=== PATIENT | male | born 1955 | race Caucasian/White ===

== ENCOUNTER 2024-03-21 12:30 | Inpatient (IN) | payer MEDICARE, SELFPAY ==
[2024-03-21] VITALS (14 sets, daily range): BP systolic 131–188; BP diastolic 58–129; PULSE 93–124; RESP 18–25; TEMP 36.7–37.2; O2SAT 92–97; BMI 44.8
--- NOTE | 2024-03-21 12:54 | CT_ITS ---
STUDY: CT CERVICAL SPINE WITHOUT CONTRAST REASON FOR EXAM: Male, 68 years old. ams RADIATION DOSAGE (If Supplied By Facility): CTDIvol = ( 29.94 ) mGy, DLP = ( 727.35 ) mGycm TECHNIQUE: High resolution transaxial imaging was performed without contrast material. Sagittal and coronal images were reconstructed. Individualized dose optimization techniques were used for this CT. COMPARISON: None FINDINGS: Normal craniovertebral junction. There are degenerative changes of the anterior atlantoaxial articulation. Normal odontoid process. Normal cervical lordosis. Multilevel spondylosis. C2-3: Normal endplates. Normal disc height and morphology. Normal central canal and intervertebral neuroforamina. C3-4: Moderate degree of this space narrowing. Uncovertebral arthrosis. Mild right neural foraminal stenosis. C4-5: Mild degree of disc space narrowing. No significant stenosis is seen. C5-6: Moderate degree of disc space narrowing and spondylolisthesis. Uncovertebral arthrosis. Moderate degree of bilateral neural foraminal stenosis. C6-7: Mild degree of disc space narrowing. No significant stenosis seen. C7-T1: Normal endplates. Normal disc height and morphology. Normal central canal and intervertebral neuroforamina. Normal visualized soft tissue structures. CT/Spine Cervical without Contras IMPRESSION: Multilevel degenerative changes, as described above. Electronically Signed: Isrrael Garcia MD at 13:45 EDT ,
--- NOTE | 2024-03-21 12:54 | CT_ITS ---
STUDY: CT BRAIN WITHOUT CONTRAST REASON FOR EXAM: Male, 68 years old. Altered mental status. RADIATION DOSAGE (If Supplied By Facility): CTDIvol = ( 44.99 ) mGy, DLP = ( 779.24 ) mGycm TECHNIQUE: Transaxial CT imaging of the brain was performed without administration of intravenous contrast material. Individualized dose optimization techniques were used for this CT. COMPARISON: No relevant priors. FINDINGS: Normal soft tissue structures. Normal calvarium. There is mild cerebral atrophy with widening of the extra-axial spaces and ventricular dilatation. There are areas of decreased attenuation within the white matter tracts of the supratentorial brain, consistent with microvascular disease changes. Normal basal ganglia and thalami. Normal brainstem. Normal cerebellum. There is no intracranial hemorrhage. There are no findings of an acute ischemic infarction. Atherosclerotic calcification of the cavernous portions of the internal carotid arteries bilaterally. Normal visualized paranasal sinuses. CT/Brain/Head without Contrast IMPRESSION: Chronic involutional changes of the brain. Electronically Signed: Isrrael Garcia MD at 13:39 EDT ,
--- NOTE | 2024-03-21 13:02 | EX.ED.DYSGE1 ---
HPI History of Present Illness Chief Complaint: Alt LOC Narrative Narrative: 68-year-old male arriving by EMS. Apparently he has not been himself. He is not talking to me but he will wake up and tell me to shut up. He did ask me what are you doing here. He will not answer any questions otherwise. He was found in his own feces and urine. Nobody is aware who called EMS. Patient reportedly has a girlfriend but she is not with him. PFSH PFSH Home Medications hydrocodone-acetaminophen 5-325mg 5mg-325mg 1 - 2 tab PO Q4H PRN PRN Pain ##20 06/23/14 [Rx Last Taken Unknown] prednisone 20 mg tablet 40 mg (2 x 20 mg) PO DAILY ##14 06/23/14 [Rx Last Taken Unknown] colchicine 0.6 mg capsule 0.6 mg PO X1 ##10 07/04/14 [Rx Last Taken Unknown] hydrocodone-acetaminophen 5-325mg 5mg-325mg 1 - 2 tab PO Q4H PRN PRN Pain ##20 07/04/14 [Rx Last Taken Unknown] indomethacin 25 mg capsule 25 mg PO TIDCM ##15 07/04/14 [Rx Last Taken Unknown] Allergy/AdvReac Type Severity Reaction Status Date / Time No Known Allergies Allergy Verified 03/21/24 12:32 Social History Smoking Status: Current some day smoker tobacco type: cigarettes ROS ROS ED Review of Systems ROS Unobtainable: due to mental condition and due to mental status EXAM Physical Exam Const Vital Signs: 03/21/24 12:31 03/21/24 13:42 03/21/24 13:30 Temperature 98.9 F Temperature Source Temporal Pulse Rate 113 H 124 H Respiratory Rate 20 H 21 H Blood Pressure 155/121 H 188/110 H Blood Pressure Mean 132 136 Pulse Ox 95 95 95 Oxygen Delivery Method Room Air Room Air 03/21/24 14:00 03/21/24 15:00 03/21/24 16:00 Temperature Temperature Source Pulse Rate 117 H 112 H 115 H Respiratory Rate 24 H 22 H 24 H Blood Pressure 187/124 H 169/129 H Blood Pressure Mean 145 142 Pulse Ox 95 95 92 Oxygen Delivery Method Room Air Room Air Room Air Positive obese and unkempt General Appearance ED: unkempt Nutritional Appearance: obese HEENT Reports TM's clear and dry mucous membranes Negative for trauma Tympanic Membrane ED: Yes TM's clear Mouth ED: Yes dry mucous membranes Mouth: dry mucous membranes Eyes PERRL and EOMs intact bilaterally Chest Wall inspection of chest normal and palpation of chest normal Resp normal respiratory effort and clear to auscultation bilaterally Auscultation: Negative for rales or rhonchi Cardio regular rate and regular rhythm GI normal to inspection, nondistended, normoactive bowel sounds Extremity normal to inspection General Extremety ED: Negative for edema General Extremity: Negative for edema Neuro CN's II-XII intact bilaterally Sensorium / Orientation: alert and orientation impaired Psych Appearance: unkempt Attitude: agitated Skin no rashes or lesions noted and no wounds MDM MDM MDM Narrative Medical decision making narrative: After initial evaluation the patient being agitated and started trying to hit the nurses and staff. I do believe he needs a workup so we will give him Leatha to calm down. He may need restraints. Differential includes intracranial hemorrhage, C-spine fracture, hyperammonemia, UTI, pneumonia, hyperglycemia, hypoglycemia, dehydration, anemia, electrolyte abnormalities, rhabdomyolysis, ACS, pneumonia UTI. CBC was obtained to assess white blood cell count, hemoglobin, platelets. CBC was obtained to assess white blood cell count, hemoglobin, platelets. BMP to assess renal function, electrolytes, glucose. CPK to assess for rhabdomyolysis. Liver enzymes to assess for transaminitis. High-sensitivity troponin and EKG to assess for ischemia/dysrhythmia. Urinalysis to assess for UTI. EtOH to assess for alcohol use drug abuse screen and assess for drug use. Acetone level to assess for DKA. Patient did go with Geodon did not have to be restrained. CBC showed 12.0 white count. Hemoglobin stable 13.4. Platelets are normal at 264. PT/INR normal. Creatinine 1.84 and there is no comparison labs that I can find. Glucose is 603 without anion gap. Serum acetone negative. Electrolytes essentially unremarkable. Ammonia level 24. EtOH negative, drug screen negative, urinalysis negative for infection CPK was within normal limits. High-sensitivity troponin was 29. Chest x-ray my interpretation showed no acute process. CT brain and cervical spine were negative for acute findings. I did speak with his sister who stated she had not spoken to him in months but did state there was somebody that sleeps on his couch and is a female named Kamryn that she believes. She was unable to provide me with any baseline mentation. She was going to try to get a hold of Kamryn but I have not heard back from her. Patient was given IV fluids and 20 units of insulin. Discussed with the hospitalist for admission. Impression: 1. delirium 2. Hyperglycemia 3. Renal failure Lab Data Labs: Laboratory Results - last 24 hr 03/21/24 03/21/24 12:36 13:20 WBC 12.0 H RBC 5.95 Hgb 15.4 Hct 47.2 MCV 79.3 L MCH 25.9 L MCHC 32.6 RDW Std Deviation 40.6 RDW Coeff of Crescencio 14.4 Plt Count 264 MPV 9.3 Immature Gran % (Auto) 1.000 H Neut % (Auto) 76.6 H Lymph % (Auto) 15.4 L [place] % (Auto) 6.3 Eos % (Auto) 0.2 Baso % (Auto) 0.5 Absolute Neuts (auto) 9.2 H Absolute Lymphs (auto) 1.86 Nucleated RBC % 0 PT 13.9 INR 1.1 APTT 25.1 Sodium 133 L Potassium 4.3 Chloride 102 Carbon Dioxide 22.0 Anion Gap 9 BUN 35 H Creatinine 1.84 H Estim Creat Clear Calc 48.30 Est GFR (MDRD) Af Amer 47 L Est GFR (MDRD) Non-Af 39 L BUN/Creatinine Ratio 19.0 Glucose 603 H* Calcium 9.4 Ammonia 24.0 Total Creatine Kinase 123 Troponin I High Sens 29 Urine Color Yellow Urine Clarity Clear Urine pH 6.0 Ur Specific [place] 1.010 Urine Protein 30 H Urine Glucose (UA) 1000 H Urine Ketones 5 H Urine Occult Blood 50 H Urine Nitrite Negative Urine Bilirubin Negative Urine Urobilinogen Normal Ur Leukocyte Esterase Negative Urine RBC 0-5 SEEN Urine WBC 0 SEEN Ur Squamous Epith Cells 0 SEEN Urine Bacteria 0 SEEN Urine Mucus 0 SEEN Urine Opiates Screen NEGATIVE Urine Methadone Screen NEGATIVE Ur Barbiturates Screen NEGATIVE Ur Phencyclidine Scrn NEGATIVE Ur Amphetamines Screen NEGATIVE MDMA (Ecstasy) Screen NEGATIVE U Benzodiazepines Scrn NEGATIVE Urine Cocaine Screen NEGATIVE U Cannabinoids Screen NEGATIVE Ur Drug Screen Comment Ethyl Alcohol < 3.0 Acetone Level NEGATIVE Radiography Diagnostic Testing: Clinical Impression(s) from Imaging Studies Brain CT 03/21/24 12:54 IMPRESSION: Chronic involutional changes of the brain. Electronically Signed: Isrrael Garcia MD at 13:39 EDT , Cervical Spine CT 03/21/24 12:54 IMPRESSION: Multilevel degenerative changes, as described above. Electronically Signed: Isrrael Garcia MD at 13:45 EDT , Chest X-Ray 03/21/24 14:45 IMPRESSION: Moderate cardiomegaly. Electronically Signed: Isrrael Garcia MD at 15:11 EDT , Discharge Plan Triage Chief Complaint: Alt LOC ED Provider: Ho Gutierrez Dx/Rx/DC Orders Prescriptions: No Action hydrocodone-acetaminophen 1 TABLET tablet 1 - 2 tab PO Q4H PRN PRN (Reason: Pain) Qty: 20 0RF prednisone 20 MG tablet 40 mg PO DAILY Qty: 14 0RF Rx Instructions: 1po bid for 7 days hydrocodone-acetaminophen 1 TABLET tablet 1 - 2 tab PO Q4H PRN PRN (Reason: Pain) Qty: 20 0RF colchicine 0.6 MG tablet 0.6 mg PO X1 Qty: 10 0RF indomethacin 25 MG capsule 25 mg PO TIDCM Qty: 15 0RF Primary Care Provider: Care Physician,No Primary Referrals: Care Physician,No Primary [Primary Care Provider] -
[2024-03-21 13:06] LABS: Absolute Lymphocyte Count 1.86 X10^3/uL (0.83-4.51); Absolute Neutrophil Count 9.2 X10^3/uL (2.0-7.7); Basophil# 0.06 X10^3/uL; Basophil% 0.5 % (0-1); Eosinophil# 0.02 X10^3/uL; Eosinophils% 0.2 % (0-5); Hematocrit 47.2 % (40-54); Hemoglobin 15.4 g/dL (13.0-16.5); Lymphocyte # 1.86 X10^3/ul (0.83-4.51); Lymphocyte % 15.4 % (19-41); Mean Corp Hgb Conc 32.6 g/dL (32-36); Mean Corpuscular Hgb 25.9 pg (27.0-32.0); Mean Corpuscular Volume 79.3 fL (80-94); Mean Platelet Vol. 9.3 fl (6.2-12.0); Monocyte# 0.76 X10^3/uL; Monocyte% 6.3 % (0-10); NRBC Flagged by Analyzer 0 % (0-5); Neutrophil # 9.22 X10^3/uL (2.7-7.7); Neutrophil % 76.6 % (47-70); Platelet Count 264 K/mm3 (150-450); RBC Distribution Width CV 14.4 % (11.6-14.6); RBC Distribution Width SD 40.6 fl (35.1-43.9); Red Blood Count 5.95 M/mm3 (4.6-6.2)
[2024-03-21 13:16] LABS: International Normalized Ratio 1.1; Prothrombin Time (Protime)PT. 13.9 SECONDS (11.7-14.9)
[2024-03-21 13:17] LABS: Partial Thromboplast Time 25.1 Seconds (24.1-36.2)
[2024-03-21] MEDS: Ziprasidone IM 20 MG/ML VIAL IM (13:19)
[2024-03-21 13:37] LABS: Anion Gap 9 (5-15); BUN 35 mg/dL (7-18); Calcium,Total 9.4 mg/dL (8.5-10.1); Chloride 102 mmol/L (98-107); Creatinine, Serum 1.84 mg/dL (0.70-1.30); EST Glomerular Filtration Rate 39 mL/min (>60); Est Glom Filt Rate - Afr Amer 47 mL/min (>60); Glucose 603 mg/dL (74-106); Potassium 4.3 mmol/L (3.5-5.1); Sodium Level 133 mmol/L (136-145); Troponin-I HS 29 pg/mL (3.0-78.0)
[2024-03-21 14:10] LABS: CPK Total, Creatine Kinase 123 U/L (39-308)
[2024-03-21 14:11] LABS: Alcohol, Blood (Medical)-Serum < 3.0 mg/dL
[2024-03-21 14:40] LABS: Amphetamine Urine VISTA NEGATIVE (<1000 ng/mL); Barbiturate Urine VISTA NEGATIVE (< 200 ng/mL); Benzodiazepine Urine VISTA NEGATIVE (< 200 ng/mL); Cocaine Urine VISTA NEGATIVE (< 300 ng/mL); Ecstacy Urine VISTA NEGATIVE (< 500 ng/mL); Methadone Urine VISTA NEGATIVE (< 300 ng/mL); PCP Urine VISTA NEGATIVE (< 25 ng/mL); THC Urine VISTA NEGATIVE (< 50 ng/mL); Vista UDS pH Range 5
--- NOTE | 2024-03-21 14:45 | RAD_ITS ---
STUDY: X-RAY CHEST REASON FOR EXAM: Male, 68 years old. Weakness TECHNIQUE: Single AP portable view of the chest. COMPARISON: None. FINDINGS: EKG electrodes are seen. The lungs are clear and expanded. There is no demonstrated pleural abnormality. There is moderate cardiac enlargement. Normal mediastinum and yael. Normal visualized pulmonary arteries. There is atherosclerotic tortuosity of the aortic arch and descending thoracic aorta. Normal visualized thoracic spine. Normal visualized ribs, clavicles, and shoulders. There is no demonstrated abnormality of the visualized soft tissue structures of the upper abdomen. RAD/Chest 1 View (Portable) IMPRESSION: Moderate cardiomegaly. Electronically Signed: Isrrael Garcia MD at 15:11 EDT ,
[2024-03-21 14:48] LABS: Bacteria 0 SEEN /hpf (None Seen); Mucous, Urine 0 SEEN /hpf (<or=2+); Squamous Epithelial Cells - UA 0 SEEN /hpf (0-5); White Blood Cells 0 SEEN /hpf (0-5)
[2024-03-21 14:52] LABS: Color, Urine Yellow (Yellow); Glucose, Dipstick 1000 mg/dl (Normal); Ketone-Dipstick 5 mg/dl (Negative); Leukocyte Esterase-Dipstick Negative /ul (Negative); Nitrite-Dipstick Negative (Negative); Occult Blood-Urine 50 /ul (Negative); Protein-Dipstick 30 mg/dl (Negative); Urine Bilirubin Dipstick Negative (Negative); Urine Clarity Clear (Clear); Urine Urobilinogen Normal (Normal)
[2024-03-21 14:59] LABS: Red Blood Cells-Urine 0-5 SEEN /hpf (0-5)
--- NOTE | 2024-03-21 16:04 | HP.PCM_ITS ---
HPI - General General Date of Admission: 03/21/24 Date of Service: 03/21/24 Chief Complaint: Altered mental status HPI Narrative JAHAIRA MAHMOOD, is a 68 M with no known past medical history was admitted to the ED on 03/16/2024 for altered mental status. Patient had apparently not been himself and could not give much of a history. He was found in his own feces and urine. EMS was called but it is not clear exactly who called the EMS. EMS b rought him to the hospital he could not give much of a history. Unable to do review of systems as patient is confused and had received Geodon in the ED on account of physical aggression and combativeness. Vitals at time of review a blood pressure of 169/129, pulse rate of 112 range. Rate of 22. Oxygen saturation was 95% on room air. CBC showed WBC of 12, hemoglobin of 15.4 and platelets of 264. INR was 1.1. Chemistry shows sodium of 133 with creatinine of 1.84, with no baseline creatinine in the EMR. Blood glucose was 603 and ammonia level was 24. Bicarb was 22 and anion gap is 9. To sultana CPK was 123 and initial troponin was 29. Urinalysis showed glucose of 5000 with protein of 30 as well as ketones of 5. There is no evidence of urine leukocyte esterase or urine WBC or urine bacteria. Urine tox was negative and serum acetone level was also negative. CT of the brain showed chronic involutional changes and CT of the cervical spine showed multilevel degenerative changes as above. Chest x-ray showed no acute cardiopulmonary process and showed moderate cardiomegaly. He has been admitted to be managed for acute encephalopathy in the setting of elevated blood sugar likely due to undiagnosed diabetes mellitus. [facility] Home Medications hydrocodone-acetaminophen 5-325mg 5mg-325mg 1 - 2 tab PO Q4H PRN PRN Pain ##20 06/23/14 [Rx Last Taken Unknown] prednisone 20 mg tablet 40 mg (2 x 20 mg) PO DAILY ##14 06/23/14 [Rx Last Taken Unknown] colchicine 0.6 mg capsule 0.6 mg PO X1 ##10 07/04/14 [Rx Last Taken Unknown] hydrocodone-acetaminophen 5-325mg 5mg-325mg 1 - 2 tab PO Q4H PRN PRN Pain ##20 07/04/14 [Rx Last Taken Unknown] indomethacin 25 mg capsule 25 mg PO TIDCM ##15 07/04/14 [Rx Last Taken Unknown] Allergy/AdvReac Type Severity Reaction Status Date / Time No Known Allergies Allergy Verified 03/21/24 12:32 Social History Smoking Status: Current some day smoker tobacco type: cigarettes ROS Review of Systems ROS Unobtainable: due to encephalopathy Constitutional Constitutional: Reports anorexia and chills Vital Signs Vital Signs Vital Signs: 03/21/24 12:31 03/21/24 13:42 03/21/24 13:30 Temperature 98.9 F Temperature Source Temporal Pulse Rate 113 H 124 H Respiratory Rate 20 H 21 H Blood Pressure 155/121 H 188/110 H Blood Pressure Mean 132 136 Pulse Ox 95 95 95 Oxygen Delivery Method Room Air Room Air 03/21/24 14:00 03/21/24 15:00 Temperature Temperature Source Pulse Rate 117 H 112 H Respiratory Rate 24 H 22 H Blood Pressure 187/124 H 169/129 H Blood Pressure Mean 145 142 Pulse Ox 95 95 Oxygen Delivery Method Room Air Room Air Weight Weight: 278 lb 14.156 oz Body Mass Index (BMI) 44.8 Physical Exam Const Constitutional Narrative: combative, very disheveled with poor hygiene Orientation / Consciousness: confused HEENT normocephalic Mouth: dry mucous membranes Eyes EOMs intact bilaterally Neck no lymphadenopathy and supple Lymph Lymphatic: no lymphadenopathy noted and no lymphedema noted Resp normal respiratory effort, normal air movement and clear to auscultation bilaterally Cardio regular rhythm, S1 normal heart sound and S2 normal heart sound Cardio Narrative: tachycardic GI normal to inspection, nondistended, normoactive bowel sounds, soft to palpation, non-tender and non-distended Extremity normal capillary refill, no clubbing, cyanosis or edema and no calf tenderness General Extremity: no tenderness to palpation of joints or extremities Skin General Skin Exam: no breakdown Neuro Neuro Narrative: confused, moves all extremities, pupils equal and reactive to light. Psych Psych Narrative: confused, agitated Results Lab / Micro Data 03/21/24 12:36 03/21/24 12:36 Labs: Laboratory Results - last 24 hr 03/21/24 12:36: WBC 12.0 H, RBC 5.95, Hgb 15.4, Hct 47.2, MCV 79.3 L, MCH 25.9 L , MCHC 32.6, RDW Std Deviation 40.6, RDW Coeff of Crescencio 14.4, Plt Count 264, MPV 9.3, Immature Gran % (Auto) 1.000 H, Neut % (Auto) 76.6 H, Lymph % (Auto) 15.4 L , [place] % (Auto) 6.3, Eos % (Auto) 0.2, Baso % (Auto) 0.5, Absolute Neuts (auto) 9.2 H, Absolute Lymphs (auto) 1.86, Nucleated RBC % 0, PT 13.9, INR 1.1, APTT 25.1, Sodium 133 L, Potassium 4.3, Chloride 102, Carbon Dioxide 22.0, Anion Gap 9, BUN 35 H, Creatinine 1.84 H, Estim Creat Clear Calc 48.30, Est GFR (MDRD) Af Amer 47 L, Est GFR (MDRD) Non-Af 39 L, BUN/Creatinine Ratio 19.0, Glucose 603 H* , Calcium 9.4, Total Creatine Kinase 123, Troponin I High Sens 29 03/21/24 13:20: Ammonia 24.0, Urine Color Yellow, Urine Clarity Clear, Urine pH 6.0, Ur Specific [place] 1.010, Urine Protein 30 H, Urine Glucose (UA) 1000 H, Urine Ketones 5 H, Urine Occult Blood 50 H, Urine Nitrite Negative, Urine Bilirubin Negative, Urine Urobilinogen Normal, Ur Leukocyte Esterase Negative, Urine RBC 0-5 SEEN, Urine WBC 0 SEEN, Ur Squamous Epith Cells 0 SEEN, Urine Bacteria 0 SEEN, Urine Mucus 0 SEEN, Urine Opiates Screen NEGATIVE, Urine Methadone Screen NEGATIVE, Ur Barbiturates Screen NEGATIVE, Ur Phencyclidine Scrn NEGATIVE, Ur Amphetamines Screen NEGATIVE, MDMA (Ecstasy) Screen NEGATIVE, U Benzodiazepines Scrn NEGATIVE, Urine Cocaine Screen NEGATIVE, U Cannabinoids Screen NEGATIVE, Ur Drug Screen Comment , Ethyl Alcohol < 3.0, Acetone Level NEGATIVE Imaging Radiology Impression Brain CT 03/21/24 12:54 IMPRESSION: Chronic involutional changes of the brain. Electronically Signed: Isrrael Garcia MD at 13:39 EDT , Cervical Spine CT 03/21/24 12:54 IMPRESSION: Multilevel degenerative changes, as described above. Electronically Signed: Isrrael Garcia MD at 13:45 EDT , Chest X-Ray 03/21/24 14:45 IMPRESSION: Moderate cardiomegaly. Electronically Signed: Isrrael Garcia MD at 15:11 EDT , Assessment & Plan Assessment/Plan (1) Encephalopathy: (2) Hyperglycemia: (3) JACQUELYN (acute kidney injury): PLAN: Plan #Acute metabolic encephalopathy * Possible etiologies include hyperglycemia and probable undiagnosed diabetes melitis. * Was found covered in feces and urine. Very confused and agitated. Unable to give a history. Urine tox negative and serum alcohol level is not elevated. * Blood sugar is elevated at 603 and patient also has JACQUELYN with creatinine of 1.84. Patient has no known medical history whatsoever and ER doctor checked clinic saying that there were no records in there. * Admit to PCU. Hydrate aggressively with IV fluid normal saline at 150 cc/h * Blood glucose is 603. Will give subcu insulin 20 units x 1 and recheck blood sugar in an hour. He has no anion gap currently so we will hold off on in sulin drip. * Check A1c. Get blood cultures. Once blood sugars trend down we will start on Lantus 10 units daily. Once kidney function improves can be started on metformin as well. * PT OT consult. Fall precautions. Of note ammonia level is also not elevated. * Patient received Geodon in the ED. Haldol as needed and will order Seroquel for if he continues to be agitated. * Will get neurology consult if confusion persists. Check vitamin B12 and folic acid. Also give IV thiamine x 1 just in case he has a history of alcohol use disorder. * #Hyperglycemia in newly diagnosed diabetes mellitus: Management as above #JACQUELYN: Creatinine is 1.86. No known baseline. Hydrate with fluids and trend. If creatinine does not improve will get further workup with renal ultrasound and urine electrolytes #DVT prophylaxis: Lovenox, renally dosed * Charges/Coding Visit Charges Inpatient E&M: 54279 Init Hosp L3
--- NOTE | 2024-03-21 16:40 | EKG12_ITS ---
Test Reason : Blood Pressure : / mmHG Vent. Rate : 119 BPM Atrial Rate : 119 BPM P-R Int : 136 ms QRS Dur : 086 ms QT Int : 336 ms P-R-T Axes : 046 040 044 degrees QTc Int : 472 ms Sinus tachycardia Otherwise normal ECG Confirmed by CRAOLINA BREEN, BALDOMERO ([id number]), newspaper or periodical editor NEREIDA TUBBS ([id number]) on 03/22/2024 6:59:47 AM Referred By: Confirmed By:BALDOMERO FIGUEROA MD
[2024-03-21 17:27] LABS: Bedside Glucose 442 mg/dL (74-106)
--- NOTE | 2024-03-21 17:59 | ECHOD_ITS ---
Reason For Study: cardiomegaly Procedure This was a 2D Doppler, Color Flow transthoracic echocardiogram. The study was technically difficult. Exam performed portable in patient room. Left Ventricle Normal LV size. Moderate to severe LV concentric hypertrophy. LV systolic ejection fraction estimated at 50 to 55%. Stage 1 diastolic dysfunction. Right Ventricle Normal right ventricle. Atria The left and right atria are normal. Mitral Valve Normal mitral valve. Tricuspid Valve The tricuspid valve is not well visualized. Aortic Valve Trisinus/trileaflet aortic valve. Pulmonic Valve The pulmonic valve is not well visualized. Great Vessels Normal sized aortic root. Pericardium/Pleural No pericardial effusion. MMode/2D Measurements & Calculations LVIDd: 4.3 cm IVSd: 1.6 cm Ao root diam: 3.1 cm LVIDs: 3.3 cm LVPWd: 1.7 cm FS: 22.8 % LAV(MOD-bp): 31.4 ml LVAd ap4: 25.3 cm2 SV(MOD-sp4): 33.4 ml LAV(MOD-bp) Indexed: 13.6 ml/m2 LVLd ap4: 8.1 cm LAV(MOD-sp2): 30.9 ml EDV(MOD-sp4): 65.0 ml LAV(MOD-sp4): 26.6 ml EDV(sp4-el): 67.4 ml LVAs ap4: 16.3 cm2 LVLs ap4: 7.4 cm ESV(MOD-sp4): 31.6 ml ESV(sp4-el): 30.6 ml EF(MOD-sp4): 51.4 % EF(sp4-el): 54.7 % SV(sp4-el): 36.9 ml LA A4 area: 11.6 cm2 LA dimension(2D): 3.6 cm RA A4 area: 14.2 cm2 TAPSE: 1.6 cm Time Measurements MV dec time: 0.27 sec Doppler Measurements & Calculations MV E max bryon: 53.4 cm/sec Lat Peak E' Bryon: 5.0 cm/sec Med Peak E' Bryon: 5.0 cm/sec MV A max bryon: 91.4 cm/sec E/E' lat: 10.8 E/E' med: 10.8 MV E/A: 0.58 MV V2 max: 93.6 cm/sec Ao V2 max: 151.0 cm/sec MV max P.5 mmHg MV dec slope: 209.2 cm/sec2 Ao max P.1 mmHg MV V2 mean: 52.2 cm/sec Ao V2 mean: 100.5 cm/sec MV mean P.2 mmHg Ao mean P.7 mmHg MV V2 VTI: 27.5 cm Ao V2 VTI: 24.1 cm AV (velocity ratio): 0.64 LV V1 max: 101.5 cm/sec PA V2 max: 75.6 cm/sec LV V1 max P.1 mmHg PA V2 mean: 51.3 cm/sec LV V1 mean P.4 mmHg LV V1 mean: 72.4 cm/sec LV V1 VTI: 15.4 cm ECHO/Echo Complete Interpretation Summary Moderate to severe LV concentric hypertrophy. LV systolic ejection fraction estimated at 50 to 55%. Stage 1 diastolic dysfunction. The study was technically difficult with suboptimal images. Ordering Physician: Shantal Dumont Referring Physician: TAMMY PCP Performed By: Sharon Junior RCS
[2024-03-21] MEDS: 0.9% Normal Saline (1000mL) 1,000 ML 150 ML IV (18:16)
[2024-03-21 18:41] LABS: Vitamin B12 625 pg/mL (211-911)
[2024-03-21 19:33] LABS: Bedside Glucose 348 mg/dL (74-106)
[2024-03-21 20:04] LABS: Troponin-I HS 38 pg/mL (3.0-78.0)
[2024-03-21] MEDS: hydrALAZINE 20 MG/ML Vial 10 MG IV (20:14)
[2024-03-21] MEDS: 0.9% Saline Lock 10 ML Syringe IV (20:14)
[2024-03-21] MEDS: Thiamine Hydrochloride 100 MG in 0.9% Normal Saline (50mL Bag) 50 ML 200 MG IV (20:14)
[2024-03-21 20:15] LABS: Hemoglobin A1c 11.7 % (3.8-5.6)
[2024-03-21] MEDS: Vancomycin HCl 2,000 MG in 0.9% Normal Saline (500mL Bag) 500 ML 250 MG IV (21:00)
--- NOTE | 2024-03-21 21:18 | NURSING ---
pt unable to tell this nurse his past medical history or his home medications due to Altered mental status.
[2024-03-21] MEDS: Insulin Lispro 100 UNIT/ML INSULN.PEN SC (21:35)
[2024-03-21] MEDS: Insulin Glargine-YFGN 100 UNIT/ML Pen 15 UNIT SC (21:36)
[2024-03-21] MEDS: Heparin Injection (Vial) 5,000 UNIT/ML VIAL 5000 UNIT SC (21:37)
[2024-03-21 21:52] LABS: Bedside Glucose 371 mg/dL (74-106)
[2024-03-21 22:03] LABS: Troponin-I HS 38 pg/mL (3.0-78.0)
--- NOTE | 2024-03-21 23:09 | PCM.RX.CS ---
Consult Antibiotic Management Pharmacy has been consulted to manage selected antibiotic: Vancomycin Type of Intervention Type of Consult: New start Suspected Infection Suspected Infection: Other Labs Labs: Sodium 133 mmol/L (136-145) L 03/21/24 12:36 Potassium 4.3 mmol/L (3.5-5.1) 03/21/24 12:36 Chloride 102 mmol/L (98-107) 03/21/24 12:36 Carbon Dioxide 22.0 mmol/L (21.0-32.0) 03/21/24 12:36 Anion Gap 9 (5-15) 03/21/24 12:36 BUN 35 mg/dL (7-18) H 03/21/24 12:36 Creatinine 1.84 mg/dL (0.70-1.30) H 03/21/24 12:36 Est GFR (MDRD) Af Amer 47 mL/min (>60) L 03/21/24 12:36 Est GFR (MDRD) Non-Af 39 mL/min (>60) L 03/21/24 12:36 BUN/Creatinine Ratio 19.0 RATIO (10-20) 03/21/24 12:36 Glucose 603 mg/dL (74-106) H* 03/21/24 12:36 Dosing Weight Weight used for dosin kg Estimated Creatinine Clearance Estimated Creatinine Clearance: 48.4 Goal Trough Goal Trough: 15-20 mcg/mL Pharmacy Plan for Drug Dosing Pharmacy Plan for Drug Dosing: NEW START IV VANCOMYCIN Consulting Physician: Dr. Dumont Indication: empiric Goal Trough: 15-20 SrCr: 1.84 (03/21/24) CrCl: 48.4 ml/min Comments: Vancomycin loading dose 2000mg given @ 2100 03/21/24 Vancomycin Dose: Vancomycin 750mg Q12H to start at 0900 03/22/24 Pending Level: Vancomycin trough @ 0830 03/23/24 Pharmacy Service will continue to monitor and adjust dosing as required. Follow-Up Labs Follow-Up Labs: Trough: Vancomycin (03/23/24 @ 0830)
[2024-03-21] MEDS: Piperacil/Tazobactam 3.375 GM in 0.9% Normal Saline (50mL MB+) 50 ML IV (23:54)
[2024-03-22] MEDS: 0.9% Normal Saline (1000mL) 1,000 ML 150 ML IV (00:56)
[2024-03-22 02:33] LABS: Absolute Lymphocyte Count 3.72 X10^3/uL (0.83-4.51); Absolute Neutrophil Count 8.3 X10^3/uL (2.0-7.7); Basophil# 0.05 X10^3/uL; Basophil% 0.4 % (0-1); Eosinophil# 0.03 X10^3/uL; Eosinophils% 0.2 % (0-5); Hematocrit 43.6 % (40-54); Hemoglobin 14.2 g/dL (13.0-16.5); Lymphocyte # 3.72 X10^3/ul (0.83-4.51); Lymphocyte % 27.7 % (19-41); Mean Corp Hgb Conc 32.6 g/dL (32-36); Mean Corpuscular Hgb 26.2 pg (27.0-32.0); Mean Corpuscular Volume 80.4 fL (80-94); Mean Platelet Vol. 9.1 fl (6.2-12.0); Monocyte# 1.25 X10^3/uL; Monocyte% 9.3 % (0-10); NRBC Flagged by Analyzer 0 % (0-5); Neutrophil # 8.27 X10^3/uL (2.7-7.7); Neutrophil % 61.7 % (47-70); Platelet Count 243 K/mm3 (150-450); RBC Distribution Width CV 15.1 % (11.6-14.6); RBC Distribution Width SD 43.6 fl (35.1-43.9); Red Blood Count 5.42 M/mm3 (4.6-6.2); White Blood Count 13.4 K/mm3 (4.4-11.0)
[2024-03-22 02:52] LABS: Troponin-I HS 48 pg/mL (3.0-78.0)
[2024-03-22 02:53] LABS: ALB/GLOB Ratio 0.7 RATIO (0.9-2.4); AST(SGOT) 8 U/L (15-37); Alanine Aminotransfer ALT/SGPT 15 U/L (16-61); Albumin, Serum 2.8 g/dL (3.2-5.0); Alkaline Phosphatase 138 U/L (45-117); Anion Gap 3 (5-15); BUN 28 mg/dL (7-18); BUN/Creat Ratio 19.2 RATIO (10-20); Calcium,Total 8.2 mg/dL (8.5-10.1); Chloride 113 mmol/L (98-107); Creatinine, Serum 1.46 mg/dL (0.70-1.30); EST Glomerular Filtration Rate 51 mL/min (>60); Est Glom Filt Rate - Afr Amer 62 mL/min (>60); Estimated Creatinine Clearance 60.88 ml/min; Globulin 4.1 g/dL (2.2-4.2); Glucose 325 mg/dL (74-106); Protein, Total 6.9 g/dL (6.4-8.2); Sodium Level 141 mmol/L (136-145)
[2024-03-22 05:45] VITALS: BP 127/61; PULSE 87; RESP 16; TEMP 36.4; O2SAT 97
[2024-03-22] MEDS: Heparin Injection (Vial) 5,000 UNIT/ML VIAL 5000 UNIT SC ×3 (05:59→22:15)
[2024-03-22] MEDS: Piperacil/Tazobactam 3.375 GM in 0.9% Normal Saline (50mL MB+) 50 ML IV ×3 (05:59→22:16)
[2024-03-22] MEDS: Insulin Lispro 100 UNIT/ML INSULN.PEN SC ×4 (06:00→17:53)
[2024-03-22 06:47] LABS: Bedside Glucose 315 mg/dL (74-106)
[2024-03-22 09:35] VITALS: BP 146/92; PULSE 67; RESP 15; TEMP 36.6; O2SAT 98
[2024-03-22] MEDS: Vancomycin HCl 750 MG in 0.9% Normal Saline (250mL Bag) 250 ML 250 MG IV ×2 (09:39→20:36)
[2024-03-22] MEDS: amLODIPine 10 MG Tablet PO (09:41)
[2024-03-22 13:10] LABS: Bedside Glucose 361 mg/dL (74-106)
--- NOTE | 2024-03-22 14:51 | CASEMGMT ---
MARVA CM NOTE: RN CM to room to complete assessment. Pt sleeping soundly/snoring and did not awaken when RN CM spoke his name. Pt w/acute encephalopathy on admission and has been confused. RN CM placed call to Jovita who is listed as pt's niece, but number not in service. RN CM called sister, Ashlee, who states does not think Jovita is pt's niece. RN MARIUSZ inquired if Ashlee would be able to answer some questions re: pt such as address, insurance, current living situation. She states she does not know info on pt, stating she has not associated w/him for a couple of years, stating He's out there. She states she will have Kamryn, who she thinks is pt's girlfriend, call [facility]. Ashlee is aware Kamryn can provide info to RN MARIUSZ but info not to be given to her, as she is not family. Ashlee provided w/this RN CM phone number. Stevenson STEVEN RN CM
--- NOTE | 2024-03-22 15:45 | PN.HOSP_ITS ---
Subjective Subjective Does not appear to be a change to his mental status from yesterday Objective Data Objective Data Vital Signs: Vital Signs Temp Pulse Resp BP Pulse Ox O2 Del Method 97.9 F 67 15 146/92 H 98 Room Air 03/22/24 09:35 03/22/24 09:35 03/22/24 09:35 03/22/24 09:35 03/22/24 09:35 03/22/24 09:35 Oxygen Delivery Method Room Air Weight: 278 lb 14.156 oz Body Mass Index (BMI) 44.8 Intake & Output: Intake and Output for Last 24 Hours 03/21/24 03/22/24 03/23/24 03:59 03:59 03:59 Intake Total 1641 / 1641 1890 / 1890 Output Total 1100 / 1100 Balance 1641 / 1641 790 / 790 Lab / Micro Data 03/23/24 08:45 03/23/24 08:45 Labs: Laboratory Results - last 24 hr 03/21/24 12:36: Hemoglobin A1c 11.7 H, Folate 9.30, TSH 1.40 03/21/24 13:20: Vitamin B12 625 03/21/24 17:07: POC Glucose 442 H 03/21/24 19:15: POC Glucose 348 H 03/21/24 19:25: Troponin I High Sens 38 03/21/24 21:32: POC Glucose 371 H 03/21/24 21:33: Troponin I High Sens 38 03/22/24 02:14: WBC 13.4 H, RBC 5.42, Hgb 14.2, Hct 43.6, MCV 80.4, MCH 26.2 L, MCHC 32.6, RDW Std Deviation 43.6, RDW Coeff of Crescencio 15.1 H, Plt Count 243, MPV 9.1, Immature Gran % (Auto) 0.700, Neut % (Auto) 61.7, Lymph % (Auto) 27.7, [place] % (Auto) 9.3, Eos % (Auto) 0.2, Baso % (Auto) 0.4, Absolute Neuts (auto) 8.3 H, Absolute Lymphs (auto) 3.72, Nucleated RBC % 0, Sodium 141, Potassium 4.0, Chloride 113 H, Carbon Dioxide 25.0, Anion Gap 3 L, BUN 28 H, Creatinine 1.46 H, Estim Creat Clear Calc 60.88, Est GFR (MDRD) Af Amer 62, Est GFR (MDRD) Non-Af 51 L, BUN/Creatinine Ratio 19.2, Glucose 325 H, Calcium 8.2 L, Total Bilirubin 0.40, AST 8 L, ALT 15 L, Alkaline Phosphatase 138 H, Troponin I High Sens 48, Total Protein 6.9, Albumin 2.8 L, Globulin 4.1, Albumin/Globulin Ratio 0.7 L 03/22/24 05:53: POC Glucose 315 H 03/22/24 12:46: POC Glucose 361 H Radiography Diagnostic Testing: Radiology Impression Echocardiogram 03/21/24 17:59 Interpretation Summary Moderate to severe LV concentric hypertrophy. LV systolic ejection fraction estimated at 50 to 55%. Stage 1 diastolic dysfunction. The study was technically difficult with suboptimal images. Ordering Physician: Shantal Dumont Referring Physician: TAMMY PCP Performed By: Sharon Junior RCS Physical Exam Narrative General: Agitated and confused HEENT: Atraumatic, PERRLA, EOMI, Normocephalic Oral: Moist Mucosa Neck: Supple, No JVD Lungs: Diminished, Normal air movement, No rhonchi, No wheeze, No rales Cardiovascular: Regular rate, Regular Rhythm, Normal S1, Normal S2, No murmurs Abdomen: Soft, Non Tender, Non-Distended, No Hepato-splenomegaly Extremities: No edema, Capillary Refill Less than 3 Seconds Skin: No rashes, No breakdown Musculoskeletal: No Tenderness to Palpation of Joints or Extremities Neurological: Does not follow commands, moves his extremities Psych/Mental Status: Flat agitated Assessment & Plan Assessment/Plan (1) Encephalopathy: (2) Hyperglycemia: (3) JACQUELYN (acute kidney injury): PLAN: Plan 1. Acute metabolic encephalopathy/JACQUELYN ? Unclear as to the primary cause of his encephalopathy ? Continues to have a leukocytosis but creatinine is a little bit improved from admission ? Ammonia on admission was unremarkable ? Blood sugars little bit better from admission still elevated above 300 will make adjustments to his insulin ? Continue with IV fluids ? PT/OT ? He has not needed the Haldol during admission so far ? Blood cultures are pending DVT: Agustina Charges/Coding Visit Charges Inpatient E&M: 98463 Subs Hosp L2
[2024-03-22 18:15] LABS: Bedside Glucose 302 mg/dL (74-106)
[2024-03-22 19:14] VITALS: BP 137/80; PULSE 81; RESP 16; TEMP 36.8; O2SAT 95
[2024-03-22] MEDS: Insulin Glargine-YFGN 100 UNIT/ML Pen 25 UNIT SC (22:15)
[2024-03-22 22:40] LABS: Bedside Glucose 146 mg/dL (74-106)
[2024-03-22 23:41] VITALS: BP 140/100; PULSE 79; RESP 18; TEMP 36.4; O2SAT 97
[2024-03-23 04:30] VITALS: BP 131/90; PULSE 84; RESP 18; TEMP 36.5; O2SAT 97
[2024-03-23] MEDS: Piperacil/Tazobactam 3.375 GM in 0.9% Normal Saline (50mL MB+) 50 ML IV ×3 (06:14→22:39)
[2024-03-23] MEDS: Heparin Injection (Vial) 5,000 UNIT/ML VIAL 5000 UNIT SC ×3 (06:14→22:30)
[2024-03-23 08:12] VITALS: BP 144/77; PULSE 79; RESP 18; TEMP 36.1; O2SAT 97
[2024-03-23 08:14] LABS: Bedside Glucose 226 mg/dL (74-106)
[2024-03-23] MEDS: Insulin Lispro 100 UNIT/ML INSULN.PEN SC ×7 (08:23→22:28)
[2024-03-23 08:59] LABS: Absolute Lymphocyte Count 1.73 X10^3/uL (0.83-4.51); Basophil# 0.04 X10^3/uL; Basophil% 0.5 % (0-1); Eosinophil# 0.09 X10^3/uL; Eosinophils% 1.2 % (0-5); Hematocrit 41.2 % (40-54); Hemoglobin 13.2 g/dL (13.0-16.5); Lymphocyte # 1.73 X10^3/ul (0.83-4.51); Lymphocyte % 23.5 % (19-41); Mean Corpuscular Hgb 26.3 pg (27.0-32.0); Mean Corpuscular Volume 82.2 fL (80-94); Mean Platelet Vol. 9.4 fl (6.2-12.0); Monocyte# 0.48 X10^3/uL; Monocyte% 6.5 % (0-10); NRBC Flagged by Analyzer 0 % (0-5); Neutrophil # 4.97 X10^3/uL (2.7-7.7); Neutrophil % 67.5 % (47-70); Platelet Count 222 K/mm3 (150-450); Red Blood Count 5.01 M/mm3 (4.6-6.2); White Blood Count 7.4 K/mm3 (4.4-11.0)
[2024-03-23 09:24] LABS: Anion Gap 6 (5-15); BUN 22 mg/dL (7-18); BUN/Creat Ratio 15.7 RATIO (10-20); Calcium,Total 8.2 mg/dL (8.5-10.1); Chloride 113 mmol/L (98-107); EST Glomerular Filtration Rate 53 mL/min (>60); Est Glom Filt Rate - Afr Amer 65 mL/min (>60); Estimated Creatinine Clearance 63.49 ml/min; Glucose 268 mg/dL (74-106); Potassium 4.1 mmol/L (3.5-5.1); Sodium Level 141 mmol/L (136-145)
[2024-03-23 10:00] LABS: Vancomycin, Trough Level 12.4 ug/mL (5.0-15.0)
--- NOTE | 2024-03-23 10:14 | PCM.RX.CS ---
Consult Antibiotic Management Pharmacy has been consulted to manage selected antibiotic: Vancomycin Type of Intervention Type of Consult: Follow-up Prior Doses of Antibiotics Prior Doses of Antibiotics Received/Current Regimen: Presently on 750mg iv q12h. Labs Labs: Sodium 141 mmol/L (136-145) 03/23/24 08:45 Potassium 4.1 mmol/L (3.5-5.1) 03/23/24 08:45 Chloride 113 mmol/L (98-107) H 03/23/24 08:45 Carbon Dioxide 22.0 mmol/L (21.0-32.0) 03/23/24 08:45 Anion Gap 6 (5-15) 03/23/24 08:45 BUN 22 mg/dL (7-18) H 03/23/24 08:45 Creatinine 1.40 mg/dL (0.70-1.30) H 03/23/24 08:45 Est GFR (MDRD) Af Amer 65 mL/min (>60) 03/23/24 08:45 Est GFR (MDRD) Non-Af 53 mL/min (>60) L 03/23/24 08:45 BUN/Creatinine Ratio 15.7 RATIO (10-20) 03/23/24 08:45 Glucose 268 mg/dL (74-106) H 03/23/24 08:45 Vancomycin Trough 12.4 ug/mL (5.0-15.0) 03/23/24 08:45 Dosing Weight Weight used for dosin kg Estimated Creatinine Clearance Estimated Creatinine Clearance: 64 ml/min Goal Trough Goal Trough: 15-20 mcg/mL Pharmacy Plan for Drug Dosing Pharmacy Plan for Drug Dosing: Trough today 12.4 and below desired range of 15-20mcg/ml. Recommend increase to 1000mg iv q12h with trough before 4th dose. Pharmacy Service will continue to monitor and adjust dosing as required. Follow-Up Labs Follow-Up Labs: Trough: Vancomycin ([id number])
[2024-03-23] MEDS: amLODIPine 10 MG Tablet PO (10:25)
[2024-03-23] MEDS: Vancomycin IV 1,000 MG/200 ML BAG 200 MG IV ×2 (10:25→21:22)
--- NOTE | 2024-03-23 10:45 | CASEMGMT ---
RN?CM?IRON WORKER?CM?to room to meet with patient for initial transition planning/care coordination?assessment.?RN?CM?introduced self and role at [facility].? Pt voices understanding and consents to?assessment?at this time.? Pt resting in bed in no distress at this time.? Pt is A/O at this time and able to answer questions, but pt easily gets off of subject/topic and needs re-directed frequently. Care providers, pharmacy, and demographics verified/updated at this time. PCP: No PCP. Pt states he recently switched insurance and was wanting to get in to see PCP that was right here by the hospital. Pt states does not remember the name of the physician. Pt provided w/local phsycians directory and also [facility] info. Pt gave permission to call [facility] to schedule an appt to get established as a new pt. Appt scheduled w/Isac Collins NP, for 03/28 @ 11:20 AM. Pt to arrive @ 11 AM. Pt made aware and this was added to pt's discharge plan by dyeing machine tender. Specialists: none Preferred Pharmacy: [facility] retail Insurance: [employer] Prescription Benefit:?not sure Living Will/HPOA:?Pt does not currently have LW/HCPOA and declines info at this time.? Pt made aware that he can contact [facility] as an out-pt and make appt in the future if he decides he would like to talk with someone about this or would like to utilize [facility] social work for advanced directive completion.?? LNOK: Pt states he has a daughter and states does not want to provide her name, stating he does not talk w/her and does not want her contacted. He states he has a brother, Kilo Montemayor, and sister, Ashlee Rai and several other 1/2 siblings. He states Jovita, who is listed as his niece, is like family since he has known her since she was a baby, but states she is not blood-related. The phone number listed under pt's name is the same # listed under Jovita's name and pt made aware this # is not in service. Pt states this # is his phone #, but that his phone broke a couple days prior to coming to the hospital. He states Jovita does not currently have a phone. Living Arrangements: Lives alone in mobile home w/6 steps to enter w/railing on one side. Pt states he takes them one step a time. Pt states Kamryn, his friend, stays w/him often on and off and Jovita also stays w/him often. He states Jovita uses meth and that she is messed up right now. Pt states he is normally independent @ baseline w/ADL's and IADL's. Transportation:?Pt states drives self and he is not sure how he is going to get home @ [place]. He states Kamryn drives and that she could take him home @ dc, but he does not know her phone number. DME: ?States has the following DME:?a walking club that he uses for community distances and has a built-in shower seat. Pt does not have a glucometer. GEN Borja RN CM, made aware. ?Pt states no need for further DME at this time.? HHC/SNF: No hx of either. Pt denies needs. Smoke/ETOH: Pt states he smokes about 1 PPD and states does drink some ETOH, but states, not often. Pt wishes to return home and states has no further concerns with going home at time of discharge. CM?to follow for any further discharge planning/needs.? Pt voices no further concerns/needs at this time.? Advised pt to ask for?CM?if any further questions/concerns/needs arise.? Voices understanding. PLAN:??Home. Pt will need script for glucometer and DM education. Stevenson STEVEN?RN?CM
[2024-03-23 10:55] LABS: Bedside Glucose 311 mg/dL (74-106)
[2024-03-23 14:00] VITALS: BP 113/72; PULSE 72; RESP 18; TEMP 36.3; O2SAT 98
[2024-03-23] MEDS: Vancomycin Trough/Random Due 1 LAB MC ×2 (14:00)
--- NOTE | 2024-03-23 14:27 | CHAPLAIN ---
Type of Pastoral Visit _x__ Initial Visit ___ Follow-up Visit ___ On-call Visit ___ General Patient Visit ___ Spiritual Assessment ___ Family Conference ___ Bereavement ___ Rapid Response ___ Code Blue ___ Other (describe below) Pastoral Care Referral From _x__ Patient ___ Family ___ Nurse ___ Physician ___ Telecommunication Operator ___ Insights Analyst ___ Other (describe below) Sacrament/Intervention _x__ Active listening ___ Anointing ___ Shinto ___ Bereavement ___ Communion ___ Bina exploration ___ _x__ Life review ___ Prayer ___ Reconciliation ___ Sacrament of Sick _x__ Supportive presence ___ Wedding ___ Other (describe below) Pastoral Comments patient immediately describes his arrival with high numbers and not remembering anything about it, saying I'm alive, that's what I know; pt gives life review and admits to poor decisions in his time and now he has more concerns financially, etc due to that; pt has very limited support, limited finances, but does not seek further assistance at this time; pt is talkative and just continues with stories and opinions;
[2024-03-23 16:27] LABS: Bedside Glucose 185 mg/dL (74-106)
--- NOTE | 2024-03-23 17:02 | PN.HOSP_ITS ---
Subjective Subjective Doing well, no issues overnight Objective Data Objective Data Vital Signs: Vital Signs Temp Pulse Resp BP Pulse Ox O2 Del Method 97.3 F L 72 18 113/72 98 Room Air 03/23/24 14:00 03/23/24 14:00 03/23/24 14:00 03/23/24 14:00 03/23/24 14:00 03/23/24 14:15 Oxygen Delivery Method Room Air Weight: 278 lb 14.156 oz Body Mass Index (BMI) 44.8 Intake & Output: Intake and Output for Last 24 Hours 03/22/24 03/23/24 03/24/24 03:59 03:59 03:59 Intake Total 1641 / 1641 3210 / 3210 450 / 450 Output Total 2550 / 2550 800 / 800 Balance 1641 / 1641 660 / 660 -350 / -350 Lab / Micro Data 03/23/24 08:45 03/23/24 08:45 Labs: Laboratory Results - last 24 hr 03/22/24 17:50: POC Glucose 302 H 03/22/24 22:07: POC Glucose 146 H 03/23/24 07:54: POC Glucose 226 H 03/23/24 08:45: WBC 7.4, RBC 5.01, Hgb 13.2, Hct 41.2, MCV 82.2, MCH 26.3 L, MCHC 32.0, RDW Std Deviation 45.0 H, RDW Coeff of Crescencio 15.0 H, Plt Count 222, MPV 9.4, Immature Gran % (Auto) 0.800, Neut % (Auto) 67.5, Lymph % (Auto) 23.5, [place] % (Auto) 6.5, Eos % (Auto) 1.2, Baso % (Auto) 0.5, Absolute Neuts (auto) 5.0, Absolute Lymphs (auto) 1.73, Nucleated RBC % 0, Sodium 141, Potassium 4.1, Chloride 113 H, Carbon Dioxide 22.0, Anion Gap 6, BUN 22 H, Creatinine 1.40 H, Estim Creat Clear Calc 63.49, Est GFR (MDRD) Af Amer 65, Est GFR (MDRD) Non-Af 53 L, BUN/Creatinine Ratio 15.7, Glucose 268 H, Calcium 8.2 L, Vancomycin Trough 12.4 05/10/24 10:31: POC Glucose 311 H 03/23/24 16:02: POC Glucose 185 H Physical Exam Narrative General: Alert, oriented x 3, cooperative, no acute distress HEENT: Atraumatic, PERRLA, EOMI, Normocephalic Oral: Moist Mucosa Neck: Supple, No JVD Lungs: Diminished, Normal air movement, No rhonchi, No wheeze, No rales Cardiovascular: Regular rate, Regular Rhythm, Normal S1, Normal S2, No murmurs Abdomen: Soft, Non Tender, Non-Distended, No Hepato-splenomegaly Extremities: No edema, Capillary Refill Less than 3 Seconds Skin: No rashes, No breakdown Musculoskeletal: No Tenderness to Palpation of Joints or Extremities Neurological: No focal neurological deficits, motor strength 5/5 in all extremities, sensation intact Psych/Mental Status: Flat Assessment & Plan Assessment/Plan (1) Encephalopathy: (2) Hyperglycemia: (3) JACQUELYN (acute kidney injury): PLAN: Plan 1. Acute metabolic encephalopathy/JACQUELYN ? Unclear as to the primary cause of his encephalopathy, though it does appear to have significantly improved if not resolved today ? Leukocytosis has resolved, no clear source of infection ? Ammonia on admission was unremarkable ? Blood sugars little bit better from admission still elevated above 300 will make adjustments to his insulin ? Continue with IV fluids ? PT/OT ? He has not needed the Haldol during admission so far ? Blood cultures are still pending DVT: Agustina Charges/Coding Visit Charges Inpatient E&M: 98954 Subs Hosp L2
[2024-03-23] MEDS: 0.9% Saline Lock 10 ML Syringe IV (21:22)
[2024-03-23 22:20] VITALS: BP 153/84; PULSE 82; RESP 18; TEMP 36.3; O2SAT 96
[2024-03-23] MEDS: Insulin Glargine-YFGN 100 UNIT/ML Pen 30 UNIT SC (22:27)
[2024-03-23 23:06] LABS: Bedside Glucose 215 mg/dL (74-106)
[2024-03-24 04:15] VITALS: BP 132/97; PULSE 84; RESP 18; TEMP 36.4; O2SAT 95
[2024-03-24] MEDS: Piperacil/Tazobactam 3.375 GM in 0.9% Normal Saline (50mL MB+) 50 ML IV ×2 (06:10→15:24)
[2024-03-24] MEDS: Heparin Injection (Vial) 5,000 UNIT/ML VIAL 5000 UNIT SC ×2 (06:11→15:47)
[2024-03-24 07:46] VITALS: BP 132/101; PULSE 89; RESP 16; TEMP 36.7; O2SAT 98
[2024-03-24 08:05] LABS: Absolute Lymphocyte Count 1.98 X10^3/uL (0.83-4.51); Absolute Neutrophil Count 4.2 X10^3/uL (2.0-7.7); Basophil# 0.04 X10^3/uL; Basophil% 0.6 % (0-1); Eosinophil# 0.11 X10^3/uL; Eosinophils% 1.6 % (0-5); Hematocrit 40.7 % (40-54); Lymphocyte # 1.98 X10^3/ul (0.83-4.51); Mean Corp Hgb Conc 31.9 g/dL (32-36); Mean Corpuscular Hgb 26.1 pg (27.0-32.0); Mean Corpuscular Volume 81.6 fL (80-94); Mean Platelet Vol. 9.6 fl (6.2-12.0); Monocyte# 0.43 X10^3/uL; Monocyte% 6.3 % (0-10); NRBC Flagged by Analyzer 0 % (0-5); Neutrophil # 4.19 X10^3/uL (2.7-7.7); Neutrophil % 61.5 % (47-70); Platelet Count 239 K/mm3 (150-450); RBC Distribution Width CV 14.9 % (11.6-14.6); Red Blood Count 4.99 M/mm3 (4.6-6.2); White Blood Count 6.8 K/mm3 (4.4-11.0)
[2024-03-24 08:38] LABS: Anion Gap 5 (5-15); BUN 17 mg/dL (7-18); BUN/Creat Ratio 13.4 RATIO (10-20); Calcium,Total 8.1 mg/dL (8.5-10.1); Chloride 112 mmol/L (98-107); Creatinine, Serum 1.27 mg/dL (0.70-1.30); EST Glomerular Filtration Rate 60 mL/min (>60); Est Glom Filt Rate - Afr Amer 72 mL/min (>60); Estimated Creatinine Clearance 69.98 ml/min; Glucose 228 mg/dL (74-106); Potassium 3.9 mmol/L (3.5-5.1); Sodium Level 139 mmol/L (136-145)
[2024-03-24 08:39] LABS: Bedside Glucose 224 mg/dL (74-106)
[2024-03-24] MEDS: Insulin Lispro 100 UNIT/ML INSULN.PEN SC ×3 (09:13→21:23)
[2024-03-24] MEDS: Insulin Lispro 100 UNIT/ML INSULN.PEN 10 UNIT SC ×3 (09:15→16:33)
[2024-03-24] MEDS: amLODIPine 10 MG Tablet PO (09:16)
--- NOTE | 2024-03-24 10:39 | CASEMGMT ---
RN MARIUSZ updated by DARIUS that nursing has concerns regarding patient's comprehension of diabetic teaching. Patient does not have an established PCP and am unable to setup HHC. Patient had appt at [facility] on 03/28. RN MARIUSZ in to discuss CCN with patient. Patient agreeable to CCN referral. Script for glucometer on chart. RN MARIUSZ made referral to CCN. Patient and sister had no further questions or concerns.
[2024-03-24] MEDS: Vancomycin IV 1,000 MG/200 ML BAG 200 MG IV (10:44)
--- NOTE | 2024-03-24 10:50 | PCM.PN.HOSP ---
Subjective Subjective Doing well, no issues overnight Objective Data Objective Data Vital Signs: Vital Signs Temp Pulse Resp BP Pulse Ox O2 Del Method 98.1 F 89 16 132/101 H 98 Room Air 03/24/24 07:46 03/24/24 07:46 03/24/24 07:46 03/24/24 07:46 03/24/24 07:46 03/24/24 07:46 Oxygen Delivery Method Room Air Weight: 278 lb 14.156 oz Body Mass Index (BMI) 44.8 Intake & Output: Intake and Output for Last 24 Hours 03/23/24 03/24/24 03/25/24 03:59 03:59 03:59 Intake Total 3210 / 3210 1400 / 1400 50 / 50 Output Total 2550 / 2550 1775 / 1775 450 / 450 Balance 660 / 660 -375 / -375 -400 / -400 Lab / Micro Data 03/24/24 06:57 03/24/24 06:57 Labs: Laboratory Results - last 24 hr 03/23/24 10:31: POC Glucose 311 H 03/23/24 16:02: POC Glucose 185 H 03/23/24 22:26: POC Glucose 215 H 03/24/24 06:57: WBC 6.8, RBC 4.99, Hgb 13.0, Hct 40.7, MCV 81.6, MCH 26.1 L, MCHC 31.9 L, RDW Std Deviation 44.0 H, RDW Coeff of Crescencio 14.9 H, Plt Count 239, MPV 9.6, Immature Gran % (Auto) 1.000 H, Neut % (Auto) 61.5, Lymph % (Auto) 29.0, [place] % (Auto) 6.3, Eos % (Auto) 1.6, Baso % (Auto) 0.6, Absolute Neuts (auto) 4.2, Absolute Lymphs (auto) 1.98, Nucleated RBC % 0, Sodium 139, Potassium 3.9, Chloride 112 H, Carbon Dioxide 22.0, Anion Gap 5, BUN 17, Creatinine 1.27, Estim Creat Clear Calc 69.98, Est GFR (MDRD) Af Amer 72, Est GFR (MDRD) Non-Af 60, BUN/Creatinine Ratio 13.4, Glucose 228 H, Calcium 8.1 L 03/24/24 07:52: POC Glucose 224 H Micro: Microbiology 03/21/24 17:26 Blood Culture (Wb) - Anticubital Right Blood Culture - Preliminary No growth in 48 hours. 03/21/24 17:03 Blood Culture (Wb) - Anticubital Right Blood Culture - Preliminary No growth in 48 hours. Physical Exam Narrative General: Alert, oriented x 3, cooperative, no acute distress HEENT: Atraumatic, PERRLA, EOMI, Normocephalic Oral: Moist Mucosa Neck: Supple, No JVD Lungs: Diminished, Normal air movement, No rhonchi, No wheeze, No rales Cardiovascular: Regular rate, Regular Rhythm, Normal S1, Normal S2, No murmurs Abdomen: Soft, Non Tender, Non-Distended, No Hepato-splenomegaly Extremities: No edema, Capillary Refill Less than 3 Seconds Skin: No rashes, No breakdown Musculoskeletal: No Tenderness to Palpation of Joints or Extremities Neurological: No focal neurological deficits, motor strength 5/5 in all extremities, sensation intact Psych/Mental Status: Flat Assessment & Plan Assessment/Plan (1) Encephalopathy: (2) Hyperglycemia: (3) JACQUELYN (acute kidney injury): PLAN: Plan 1. Acute metabolic encephalopathy(resolved)/JACQUELYN/new onset type 2 diabetes with hyperglycemia ? Unclear as to the primary cause of his encephalopathy, though it does appear to have significantly improved if not resolved today ? Leukocytosis has resolved, no clear source of infection ? Ammonia on admission was unremarkable ? Blood sugars little bit better from admission still elevated above 300 will make adjustments to his insulin ? Continue with IV fluids ? PT/OT ? He has not needed the Haldol during admission so far ? Blood cultures are negative x 48 hours ? A1c on admission was 11.7, will add lisinopril as he is also hypertensive and Coreg. Will also cover with Lipitor and have a lipid panel in the morning 2. Essential HTN ? In the setting of his diabetes we will place him on lisinopril and Coreg ? Will check a lipid panel however given that he is a diabetic also started on a low-dose Lipitor and check a lipid panel in the morning DVT: Lovenox Charges/Coding Visit Charges Inpatient E&M: 39201 Subs Hosp L2
[2024-03-24 12:36] LABS: Bedside Glucose 292 mg/dL (74-106)
[2024-03-24 14:00] VITALS: BP 125/76; PULSE 74; RESP 20; TEMP 37.2; O2SAT 93
[2024-03-24] MEDS: Lisinopril 5 MG Tablet PO (15:46)
[2024-03-24 17:14] LABS: Bedside Glucose 148 mg/dL (74-106)
[2024-03-24 21:20] VITALS: BP 124/73; PULSE 78; RESP 18; TEMP 37; O2SAT 97
[2024-03-24] MEDS: Insulin Glargine-YFGN 100 UNIT/ML Pen 20 UNIT SC (21:22)
[2024-03-24] MEDS: Atorvastatin Calcium 20 MG Tablet PO (21:22)
[2024-03-24] MEDS: Carvedilol 3.125 MG TABLET PO (21:22)
[2024-03-24] MEDS: 0.9% Saline Lock 10 ML Syringe IV (21:23)
[2024-03-24] MEDS: Acetaminophen 325 MG Tablet 650 MG PO (21:25)
[2024-03-24 23:21] LABS: Bedside Glucose 178 mg/dL (74-106)
[2024-03-25 03:20] VITALS: BP 114/58; PULSE 78; RESP 18; TEMP 36.6; O2SAT 97
[2024-03-25] MEDS: Acetaminophen 325 MG Tablet 650 MG PO (03:31)
[2024-03-25 05:37] LABS: Absolute Lymphocyte Count 1.92 X10^3/uL (0.83-4.51); Basophil# 0.04 X10^3/uL; Basophil% 0.6 % (0-1); Eosinophil# 0.13 X10^3/uL; Eosinophils% 1.9 % (0-5); Hematocrit 41.5 % (40-54); Lymphocyte # 1.92 X10^3/ul (0.83-4.51); Lymphocyte % 28.1 % (19-41); Mean Corp Hgb Conc 31.3 g/dL (32-36); Mean Platelet Vol. 9.3 fl (6.2-12.0); Monocyte# 0.65 X10^3/uL; Monocyte% 9.5 % (0-10); NRBC Flagged by Analyzer 0 % (0-5); Neutrophil # 4.02 X10^3/uL (2.7-7.7); Neutrophil % 58.9 % (47-70); Platelet Count 236 K/mm3 (150-450); RBC Distribution Width CV 15.1 % (11.6-14.6); RBC Distribution Width SD 45.5 fl (35.1-43.9); White Blood Count 6.8 K/mm3 (4.4-11.0)
[2024-03-25 07:28] LABS: Anion Gap 5 (5-15); BUN 18 mg/dL (7-18); BUN/Creat Ratio 12.7 RATIO (10-20); Calcium,Total 8.2 mg/dL (8.5-10.1); Chloride 112 mmol/L (98-107); Cholesterol 217 mg/dL (200); Creatinine, Serum 1.42 mg/dL (0.70-1.30); EST Glomerular Filtration Rate 53 mL/min (>60); Est Glom Filt Rate - Afr Amer 64 mL/min (>60); Estimated Creatinine Clearance 62.59 ml/min; Glucose 296 mg/dL (74-106); High Density Lipoprotein 22 mg/dL; Potassium 3.8 mmol/L (3.5-5.1); Sodium Level 138 mmol/L (136-145); Triglycerides 445 mg/dL
[2024-03-25] MEDS: Insulin Lispro 100 UNIT/ML INSULN.PEN 10 UNIT SC ×2 (07:59→12:34)
[2024-03-25] MEDS: Insulin Lispro 100 UNIT/ML INSULN.PEN SC ×2 (08:00→12:34)
[2024-03-25 08:22] LABS: Bedside Glucose 241 mg/dL (74-106)
[2024-03-25] MEDS: 0.9% Normal Saline (1000mL) 1,000 ML 100 ML IV (08:28)
[2024-03-25] MEDS: 0.9% Saline Lock 10 ML Syringe IV (08:29)
[2024-03-25 10:51] VITALS: BP 117/61; PULSE 69; RESP 18; TEMP 36.6; O2SAT 99
[2024-03-25] MEDS: Carvedilol 3.125 MG TABLET PO (11:01)
[2024-03-25] MEDS: Insulin Glargine-YFGN 100 UNIT/ML Pen 20 UNIT SC (11:02)
[2024-03-25] MEDS: amLODIPine 10 MG Tablet PO (11:02)
[2024-03-25] MEDS: Lisinopril 5 MG Tablet PO (11:03)
[2024-03-25 11:38] LABS: Bedside Glucose 215 mg/dL (74-106)
--- NOTE | 2024-03-25 14:20 | DCINST_ITS ---
Discharge Instructions Diet Discharge Diet: Low fat / Low cholesterol and Carb Control Diet Activity Discharge Activity: Return to Normal Activity Dressing / Incision Call your doctor if you observe: Fever of 101 or Higher, Shortness of breath, Dizziness, Fainting spells, Swelling in the ankles, Chest pain and Increased palpitations (irregular heartbeat) Follow Up Care Test Results: Test results from this visit will be discussed in further detail at your follow- up appointment, if applicable. Discharge Plan Admission Admit Date/Time: 03/21/24 16:18 Attending Provider: Danilo Parra Primary Care Provider: Care Physician,No Primary Consulting Providers: Shantal Dumont Instructions Patient Instructions: Diabetes and Heart Disease, Diabetes and Kidney Disease, Diabetes Exercise Starting, Diabetes Carbs Fats Protein, ED Hypertension New Begin Treatment, Diabetes and High Blood Pressure Additional Instructions / Restrictions: Follow-up with your PCP on 03/28/2024 to obtain lab work to monitor your renal function as you are started on multiple new medications that can affect her kidneys. You also need to likely be started on metformin which is an oral medication for your diabetes if your kidney function allows. Discharge Orders/Prescriptions Prescriptions: New atorvastatin 20 mg Tablet 20 mg PO QHS 30 Days Qty: 30 3RF carvedilol 3.125 mg Tablet 3.125 mg PO BID 30 Days Qty: 60 3RF amlodipine 10 mg Tablet 10 mg PO DAILY 30 Days Qty: 30 3RF lisinopril 5 mg Tablet 5 mg PO DAILY 30 Days Qty: 30 3RF insulin glargine-yfgn 100 unit/mL (3 mL) Insulin Pen 20 unit subcut BID 30 Days Qty: 12 3RF Discontinued hydrocodone-acetaminophen 1 TABLET tablet 1 - 2 tab PO Q4H PRN PRN (Reason: Pain) Qty: 20 0RF prednisone 20 MG tablet 40 mg PO DAILY Qty: 14 0RF Rx Instructions: 1po bid for 7 days hydrocodone-acetaminophen 1 TABLET tablet 1 - 2 tab PO Q4H PRN PRN (Reason: Pain) Qty: 20 0RF colchicine 0.6 MG tablet 0.6 mg PO X1 Qty: 10 0RF indomethacin 25 MG capsule 25 mg PO TIDCM Qty: 15 0RF Referrals / Follow Up: [facility] Cota [Non-Staff] - 03/28/24 11:20 am (Appointment is with Isac Collins N.P. Please arrive 20 minutes prior to appointment. Bring insurance card and photo I.D.) Disposition Disposition (needs filled in before D/C Order can be placed): Home, Self Care
--- NOTE | 2024-03-25 14:57 | PCM.DC.SUM ---
Providers Date of Admission: 03/21/24 Primary Care Physician: No Primary Care Phys Reason For Visit: ACUTE ENCEPHALOPATHY, HYPERGLYCEMIA Diagnosis Discharge Diagnosis (1) Encephalopathy: Status: Acute Code(s): G93.40 - Encephalopathy, unspecified (2) Hyperglycemia: Status: Acute Code(s): R73.9 - Hyperglycemia, unspecified (3) JACQUELYN (acute kidney injury): Status: Acute Code(s): N17.9 - Acute kidney failure, unspecified Medications at Discharge Home Medications amlodipine 10 mg tablet 10 mg PO DAILY 30 days #30 tabs 03/25/24 atorvastatin 20 mg tablet 20 mg PO QHS 30 days #30 tabs 03/25/24 carvedilol 3.125 mg tablet 3.125 mg PO BID 30 days #60 tabs 03/25/24 insulin glargine-yfgn 100 unit/mL (3 mL) subcutaneous pen 20 unit (0.2 mL) subcut BID 30 days #12 mL 03/25/24 lisinopril 5 mg tablet 5 mg PO DAILY 30 days #30 tabs 03/25/24 Hospital Course Operations None Procedures 2-D Echocardiogram Summary of Care Provided Minutes Spent on Discharge: 36 Hospital Course: Per HPI: JAHAIRA MAHMOOD, is a 68 M with no known past medical history was admitted to the ED on 03/16/2024 for altered mental status. Patient had apparently not been himself and could not give much of a history. He was found in his own feces and urine. EMS was called but it is not clear exactly who called the EMS. EMS brought him to the hospital he could not give much of a history. Unable to do review of systems as patient is confused and had received Geodon in the ED on account of physical aggression and combativeness. Vitals at time of review a blood pressure of 169/129, pulse rate of 112 range. Rate of 22. Oxygen saturation was 95% on room air. CBC showed WBC of 12, hemoglobin of 15.4 and platelets of 264. INR was 1.1. Chemistry shows sodium of 133 with creatinine of 1.84, with no baseline creatinine in the EMR. Blood glucose was 603 and ammonia level was 24. Bicarb was 22 and anion gap is 9. Total CPK was 123 and initial troponin was 29. Urinalysis showed glucose of 5000 with protein of 30 as well as ketones of 5. There is no evidence of urine leukocyte esterase or urine WBC or urine bacteria. Urine tox was negative and serum acetone level was also negative. CT of the brain showed chronic involutional changes and CT of the cervical spine showed multilevel degenerative changes as above. Chest x-ray showed no acute cardiopulmonary process and showed moderate cardiomegaly. He has been admitted to be managed for acute encephalopathy in the setting of elevated blood sugar likely due to undiagnosed diabetes mellitus. Hospital Course: 1. 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 Unclear as to the primary cause of his encephalopathy, though it does appear to have significantly improved if not resolved today ? Leukocytosis has resolved, no clear source of infection, antibiotics were discontinued ? Ammonia on admission was unremarkable ? Blood sugars little bit better from admission still elevated above 300 will make adjustments to his insulin ? Continue with IV fluids ? PT/OT ? He has not needed the Haldol during admission so far ? Blood cultures are negative x 48 hours ? A1c on admission was 11.7, will add lisinopril as he is also hypertensive and Coreg. Will also cover with Lipitor and have a lipid panel in the morning 03/25/2024: Blood sugars have been much more stable in the 200s with the adjustment on his insulin. Given his renal function I do not feel comfortable prescribing him right away metformin so we will discharge him on Lantus 20 units twice daily as well as outpatient follow-up, he has an appointment on 03/28/2024 with PCP. He will need outpatient lab work evaluating his renal function. I did have extensive discussions with him on dietary adjustments for his diabetes. He was also started on Norvasc, Coreg, and lisinopril both because of his hypertension on admission but also, in regards to his lisinopril, he did have proteinuria on his UA. A lipid panel was also obtained in conjunction with his new diagnosis of type 2 diabetes and did have elevated triglycerides and could not calculate his LDL so he was also started on 20 mg of p.o. atorvastatin on discharge as well. I discussed with him the plan for discharge and he expressed understanding of the risk and benefits of going home and would like to go home today. Physical Exam Narrative General: Alert, oriented x 3, cooperative, no acute distress HEENT: Atraumatic, PERRLA, EOMI, Normocephalic Oral: Moist Mucosa Neck: Supple, No JVD Lungs: Diminished, Normal air movement, No rhonchi, No wheeze, No rales Cardiovascular: Regular rate, Regular Rhythm, Normal S1, Normal S2, No murmurs Abdomen: Soft, Non Tender, Non-Distended, No Hepato-splenomegaly Extremities: No edema, Capillary Refill Less than 3 Seconds Skin: No rashes, No breakdown Musculoskeletal: No Tenderness to Palpation of Joints or Extremities Neurological: No focal neurological deficits, motor strength 5/5 in all extremities, sensation intact Psych/Mental Status: Normal affect, appropriate Weight / BMI Weight Weight: 278 lb 14.156 oz Body Mass Index (BMI) 44.8 ABG / Lab / Microbiology Data 03/25/24 05:23 03/25/24 05:23 Laboratory: Laboratory Results - last 24 hr 03/24/24 16:31: POC Glucose 148 H 03/24/24 21:20: POC Glucose 178 H 03/25/24 05:23: WBC 6.8, RBC 5.00, Hgb 13.0, Hct 41.5, MCV 83.0, MCH 26.0 L, MCHC 31.3 L, RDW Std Deviation 45.5 H, RDW Coeff of Crescencio 15.1 H, Plt Count 236, MPV 9.3, Immature Gran % (Auto) 1.000 H, Neut % (Auto) 58.9, Lymph % (Auto) 28.1, Crawford % (Auto) 9.5, Eos % (Auto) 1.9, Baso % (Auto) 0.6, Absolute Neuts (auto) 4.0, Absolute Lymphs (auto) 1.92, Nucleated RBC % 0, Sodium 138, Potassium 3.8, Chloride 112 H, Carbon Dioxide 21.0, Anion Gap 5, BUN 18, Creatinine 1.42 H, Estim Creat Clear Calc 62.59, Est GFR (MDRD) Af Amer 64, Est GFR (MDRD) Non-Af 53 L, BUN/Creatinine Ratio 12.7, Glucose 296 H, Calcium 8.2 L, Triglycerides 445 H, Cholesterol 217 H, LDL Cholesterol TNP, VLDL Cholesterol TNP, HDL Cholesterol 22 L 03/25/24 07:56: POC Glucose 241 H 03/25/24 10:58: POC Glucose 215 H Microbiology: Microbiology 03/21/24 17:26 Blood Culture (Wb) - Anticubital Right Blood Culture - Preliminary No growth in 48 hours. 03/21/24 17:03 Blood Culture (Wb) - Anticubital Right Blood Culture - Preliminary No growth in 48 hours. D/C Instructions Discharge Diet: Low fat / Low cholesterol and Carb Control Diet Call your doctor if you observe: Fever of 101 or Higher, Shortness of breath, Dizziness, Fainting spells, Swelling in the ankles, Chest pain and Increased palpitations (irregular heartbeat) Meaningful Use Info Meaningful Use Meaningful Use Diagnoses (Choose all that apply): None applicable Ischemic Stroke Statin Dosing Therapy Reference: STATIN DOSE THERAPY REFERENCE: * Patients > 75 years receive moderate or high dose statin therapy. * Patients 75 years or YOUNGER should receive HIGH intensity statin dose unless contraindicated. You will be required to document reason for non-treatment if statin daily dose does not meet guidelines. HIGH DOSE STATIN THERAPY DAILY Atorvastatin > than or = to 40 mg Rosuvastatin > than or = to 20 mg Amlodipine + Atorvastatin > than or = to 2.5/40 mg Ezetimibe + Simvastatin 10/80 mg Simvastatin 80mg Discharge Plan Admission Admit Date/Time: 03/21/24 16:18 Attending Provider: Danilo Parra Primary Care Provider: Care Physician,Alana Primary Consulting Providers: Shantal Dumont Instructions Patient Instructions: Diabetes and Heart Disease, Diabetes and Kidney Disease, Diabetes Exercise Starting, Diabetes Carbs Fats Protein, ED Hypertension New Begin Treatment, Diabetes and High Blood Pressure Additional Instructions / Restrictions: Follow-up with your PCP on 03/28/2024 to obtain lab work to monitor your renal function as you are started on multiple new medications that can affect her kidneys. You also need to likely be started on metformin which is an oral medication for your diabetes if your kidney function allows. Discharge Orders/Prescriptions Prescriptions: New atorvastatin 20 mg Tablet 20 mg PO QHS 30 Days Qty: 30 3RF carvedilol 3.125 mg Tablet 3.125 mg PO BID 30 Days Qty: 60 3RF amlodipine 10 mg Tablet 10 mg PO DAILY 30 Days Qty: 30 3RF lisinopril 5 mg Tablet 5 mg PO DAILY 30 Days Qty: 30 3RF insulin glargine-yfgn 100 unit/mL (3 mL) Insulin Pen 20 unit subcut BID 30 Days Qty: 12 3RF Discontinued hydrocodone-acetaminophen 1 TABLET tablet 1 - 2 tab PO Q4H PRN PRN (Reason: Pain) Qty: 20 0RF prednisone 20 MG tablet 40 mg PO DAILY Qty: 14 0RF Rx Instructions: 1po bid for 7 days hydrocodone-acetaminophen 1 TABLET tablet 1 - 2 tab PO Q4H PRN PRN (Reason: Pain) Qty: 20 0RF colchicine 0.6 MG tablet 0.6 mg PO X1 Qty: 10 0RF indomethacin 25 MG capsule 25 mg PO TIDCM Qty: 15 0RF Referrals / Follow Up: Funmi Cota [Non-Staff] - 03/28/24 11:20 am (Appointment is with Isac Collins N.P. Please arrive 20 minutes prior to appointment. Bring insurance card and photo I.D.) Disposition Disposition (needs filled in before D/C Order can be placed): Home, Self Care Charges/Coding Visit Charges Inpatient E&M: 39855 Disch Hosp >30min
[2024-03-25 15:46] VITALS: BP 138/72; PULSE 79; RESP 18; TEMP 36.4; O2SAT 98
--- NOTE | 2024-03-27 10:29 | CCN.REFER ---
PATIENT DECLINES CCN. STATES CCN IS NOT NEEDED AT THIS TIME. EDUCATION PROVIDED AND THIS RN'S PHONE NUMBER LEFT W/ PATIENT.
== END 2024-03-25 17:46 | disposition home or self-care (01) | DRG 637 ==
LOC: ED 16:35 → PCU 16:46
PROVIDERS: Admitting Provider Student in an Organized Health Care Education/Training Program; Emergency Provider Student in an Organized Health Care Education/Training Program; Visit Provider Family Medicine
DX: E11.65 Type 2 diabetes mellitus with hyperglycemia (principal); G93.41 Metabolic encephalopathy; N17.9 Acute kidney failure, unspecified; Z68.41 Body mass index [BMI] 40.0-44.9, adult; E66.01 Morbid (severe) obesity due to excess calories; I10 Essential (primary) hypertension; F17.210 Nicotine dependence, cigarettes, uncomplicated; R45.1 Restlessness and agitation; R80.9 Proteinuria, unspecified
CPT/HCPCS: 36415; 70450; 71045; 72125; 80048; 80053; 80061; 80202; 80307; 80320; 81001; 82009; 82140; 82550; 82607; 82746; 82962; 83036; 84443; 84484; 85025; 85610; 85730; 87040; 93005; 93306; 97162; 97166; 97530; 99285; 99406; J7030; J7040; J7050; A4216; G0480; J3486; J3490

== ENCOUNTER → 2025-09-23 | Outpatient (CLI) | payer MEDICARE, MEDICAID, SELFPAY ==
[2025-09-23 17:20] LABS: Hematocrit 45.8 % (40-54); Hemoglobin 14.6 g/dL (13.0-16.5); Immature Granulocytes Count 0.060 X10^3/uL (0.0-0.0); Mean Corp Hgb Conc 31.9 g/dL (32-36); Mean Corpuscular Volume 81.9 fL (80-94); Mean Platelet Vol. 9.2 fl (6.2-12.0); NRBC Flagged by Analyzer 0 % (0-5); Platelet Count 297 K/mm3 (150-450); RBC Distribution Width CV 15.0 % (11.6-14.6); RBC Distribution Width SD 44.2 fl (35.1-43.9); Red Blood Count 5.59 M/mm3 (4.6-6.2); White Blood Count 10.3 K/mm3 (4.4-11.0)
[2025-09-23 17:51] LABS: AST(SGOT) 18 U/L (<=37); Alanine Aminotransfer ALT/SGPT 15 U/L (<=46); Albumin, Serum 3.5 g/dL (3.4-4.8); Alkaline Phosphatase 119 U/L (40-129); Anion Gap 12 (5-15); BUN 22 mg/dL (4-19); BUN/Creat Ratio 16.8 RATIO (10-20); Calcium,Total 9.1 mg/dL (7.6-11.0); Carbon Dioxide 21.2 mmol/L (21.0-32.0); Chloride 108 mmol/L (98-108); Globulin 3.7 g/dL (2.2-4.2); Glucose 135 mg/dL (70-99); Potassium 4.1 mmol/L (3.3-5.1)
--- OUTSIDE RECORDS SUMMARY | 2025-09-23 19:25 | XMS RPT_ITS | CCD ---
Author Organization [facility] Care Team Providers Care Chandelier Maker Name Role Phone PHYSICIAN, NONE Primary Care Physician Unavailab adan BANSAL MD, JACOB Hammer Attending Unavailable PHYSICIAN, NONE Primary Care Unavailable Care Physician, No Primary Primary Care Provider Unavailable Alexy, Dr. Gillis Attending Provider [phone] Ho Gtuierrez Emergency Provider [phone] Dr. Shantal Dumont Admit Provider [phone] Shantal Dumont Other Provider [phone] Danilo Parra Attending Provider Dr. Danilo Parra Other Provider Beam MELVIN, Ema Attending Unavailable Care Physician, No Primary Primary Care Unava ilable Medications Current Medications Medication Drug Class(es) Dates Sig (Normalized) Sig (Original) amLODIPine 10 mg oral tablet (1 source) Dihydropyridine Calcium Channel Sruthi Start: 03-25-2024 take 10 mg by mouth once daily Amlodipine Active 10 MG PO DAILY 30 March 25, 2024 12:00am atorvastatin 20 mg oral tablet (1 source) HMG-CoA Reductase Inhibitor Start: 03-25-2024 take 20 mg by mouth at bedtime Atorvastatin Active 20 MG PO AT BEDTIME 30 March 25, 2024 12:00am carvedilol 3.125 mg oral tablet (1 source) alpha-Adrenergic Sruthi, beta-Adrenergic Sruthi Start: 03-25-2024 take 3.125 mg by mouth twice daily Carvedilol Active 3.125 MG PO TWICE A DAY 60 March 25, 2024 12:00am Insulin Glargine-Yfgn (1 source) Start: 03-25-2024 Insulin Glargine-Yfgn Active 20 UNIT SC TWICE A DAY 11 12March 25, 2024 12:00am lisinopril 5 mg oral tablet (1 source) Angiotensin Converting Enzyme Inhibitor Start: 03-25-2024 take 5 mg by mouth once daily Lisinopril Active 5 MG PO DAILY March 25, 2024 12:00am Completed/Discontinued Medications Medication Drug Class(es) Dates Sig (Normalized) Sig (Original) acetaminophen 325 mg / HYDROcodone bitartrate 5 mg oral tablet (4 sources) Opioid Agonist Start: 06-23-2014 End: 03-25-2024 take 1 tablet by mouth every four hours as needed Hydrocodone-Acetami nophen Discontinued 1 - 2 TABLET PO EVERY 4 HOURS NEEDED July 04, 2014 12:00am March 25, 2024 2:21pm colchicine 0.6 mg oral tablet (4 sources) Start: 05-08-2020 End: 06-05-2020 colchicine 0.6 mg oral tablet Dose : 0.6 mg = 1 tab(s), Oral, BID, PRN as needed for gout pain, # 28 tab(s), 1 Refill(s), Pharmacy: [facility]/pharmacy #[id number], 167.6, cm, 05/08/20 7:42:00 EDT, Height, kg, 05/08/20 7:42:00 EDT, Dosing Weight Start Date: 05/08/20 Stop Date: 06/05/20 Status: Ordered Start: 05-08-2020 End: 06-19-2020 colchicine 0.6 mg oral capsu le Dose : 0.6 mg = 1 cap(s), Oral, BID, # 42 cap(s), 1 Refill(s), Pharmacy: [facility]/pharmacy #[id number], 167.6, cm, 05/08/20 7:42:00 EDT, Height, kg, 05/08/20 7:42:00 EDT, Dosing Weight Start Date: 05/08/20 Stop Date: 06/19/20 Status: Ordered Start: 07-04-2014 take 0.6 mg by mouth once Colc hicine Active 0.6 MG PO ONE TIME July 04, 2014 12:00am Start: 07-04-2014 End: 03-25-2024 take 0.6 mg by mouth once Colchicine Discontinued 0.6 MG PO ONE TIME July 04, 2014 12:00am March 25, 2024 2:21pm indomethacin 25 mg oral capsule (2 sources) Nonsteroidal Anti-inflammatory Drug Start: 07-04-2014 End: 03-25-2024 take 25 mg by mouth three times daily at mealtime Indomethacin Discontinued 25 MG PO 3 TIMES DAILY WITH MEALS July 04, 2014 12:00am March 25, 2024 2:21pm predniSONE 20 mg oral tablet (2 sources) Start: 06-23-2014 End: 03-25-2024 take 40 mg by mouth once daily Prednisone Discontinued 40 MG PO DAILY June 23, 2014 12:00am March 25, 2024 2:21pm 1po bid for 7 days Problems Problem Classification Problem Date Documented Date Episodic/Chronic Acute and unspecified renal failure (5 sources) Acute renal failure syndrome; Translations: [Acute kidney failure, unspecified] Onset: 04-11-2024 03-21-2024 Episodic Diabetes mellitus without complication (1 source) Type 2 diabetes mellitus without complications; Translations: [Type 2 diabetes mellitus without complications] Onset: 09-18-2025 Chronic Diabetes mellitus without complication (4 sources) Hyperglycemia; Translations: [Hyperglycemia, unspecified] 03-21-2024 Episodic Gout and other crystal arthropathies (1 source) Gout 10-23-2014 Chronic Hepatitis (1 source) Viral hepatitis C 10-23-2014 Episodic Other nervous system disorders (2 sources) Disorder of brain; Translations: [Encephalopathy, unspecified] 03-21-2024 Chronic Other nervous system disorders (2 sources) Encephalopathy, unspecified; Translations: [Encephalopathy, unspecified] 03-21-2024 Chronic Skin and subcutaneous tissue infections (1 source) Staphylococcal infection of skin 05-08-2020 Episodic Results Test Name Value Interpretation Reference Range Facility Ammonia Plas-sCncon 04-11-20 24 Ammonia (P) [Moles/Vol] 41 umol/L Normal 16-60 [facility] Comment on above: Order Comment: Speci men Type: BLOOD SPECIMEN Ordering Facility: [facility] Address: [address] [place] [address] Performed By: #### 1 6362-6 #### [facility] CLIA [id number] [address] [place] [address] [place] CBC W Auto Differential pane l (Bld)on 04-11-2024 Basophils (Bld) [#/Vol] 0.07 10*3/uL Normal <0.11 [facility] Comment on above: Order Comment: Speci men Type: BLOOD SPECIMEN Ordering Facility: [facility] Address: [address] [place] [address] Performed By: #### 5 7021-8 #### [facility] CLIA [id number] [address] [place] [address] [place] Basophils/100 WBC (Bld) 0.6 % Normal [facility] Comment on above: Order Comment: Speci men Type: BLOOD SPECIMEN Ordering Facility: [facility] Address: [address] [place] [address] Performed By: #### 5 7021-8 #### [facility] CLIA [id number] [facility] [address] STATES OF [facility] Differential cell count method Nom (Bld) Auto Normal [facility] Comment on above: Order Comment: Speci men Type: BLOOD SPECIMEN Ordering Facility: [facility] Address: [address] [place] [address] Performed By: #### 5 7021-8 #### [facility] CLIA [id number] [address] [place] [address] [place] Eosinophils (Bld) [#/Vol] 0.12 10*3/uL Normal <0.46 [facility] Comment on above: Order Comment: Speci men Type: BLOOD SPECIMEN Ordering Facility: [facility] Address: [address] [place] [address] Performed By: #### 5 7021-8 #### [facility] CLIA [id number] [address] [place] Eosinophils/100 WBC (Bld) 1.1 % Normal [facility] Comment on above: Order Comment: Speci men Type: BLOOD SPECIMEN Ordering Facility: [facility] Address: [address] [place] [address] Performed By: #### 5 7021-8 #### [facility] CLIA [id number] [address] [place] [address] [place] Erythrocyte distribution width (RBC) [Ratio] 15.4 % High 11.5-15.0 [facility] Comment on above: Order Comment: Speci men Type: BLOOD SPECIMEN Ordering Facility: [facility] Address: [address] [place] [address] Performed By: #### 5 7021-8 #### [facility] CLIA [id number] [address] [place] [address] [place] Hematocrit (Bld) [Volume fraction] 39.5 % Normal 39.0-51.0 [facility] Comment on above: Order Comment: Speci men Type: BLOOD SPECIMEN Ordering Facility: [facility] Address: [address] [place] [address] Performed By: #### 5 7021-8 #### [facility] CLIA [id number] [address] [place] [address] [place] Hemoglobin (Bld) [Mass/Vol] 12.6 g/dL Low 13.0-17.0 [facility] Comment on above: Order Comment: Speci men Type: BLOOD SPECIMEN Ordering Facility: [facility] Address: [address] [place] [address] Performed By: #### 5 7021-8 #### [facility] CLIA [id number] [address] [place] [address] [place] Immature granulocytes (Bld) [#/Vol] 0.13 10*3/uL High <0.10 [facility] Comment on above: Order Comment: Speci men Type: BLOOD SPECIMEN Ordering Facility: [facility] Address: [address] [place] [address] Performed By: #### 5 7021-8 #### [facility] CLIA [id number] [address] [place] [address] [place] Immature granulocytes/100 WBC (Bld) 1.2 % Normal [facility] Comment on above: Order Comment: Speci men Type: BLOOD SPECIMEN Ordering Facility: [facility] Address: [address] [place] [address] Performed By: #### 5 7021-8 #### [facility] CLIA [id number] [address] [place] [address] [place] Lymphocytes (Bld) [#/Vol] 3.12 10*3/uL Normal 1.00-4.00 [facility] Comment on above: Order Comment: Speci men Type: BLOOD SPECIMEN Ordering Facility: [facility] Address: [address] [place] [address] Performed By: #### 5 7021-8 #### [facility] IA [id number] [address] [place] [address] [place] Lymphocytes/100 WBC (Bld) 28.0 % Normal [facility] Comment on above: Order Comment: Speci men Type: BLOOD SPECIMEN Ordering Facility: [facility] Address: [address] [place] [address] Performed By: #### 5 7021-8 #### [facility] IA [id number] [address] [place] [address] [place] MCH (RBC) [Entitic mass] 26.5 pg Normal 26.0-34.0 [facility] Comment on above: Order Comment: Speci men Type: BLOOD SPECIMEN Ordering Facility: [facility] Address: [address] [place] [address] Performed By: #### 5 7021-8 #### [facility] CLIA [id number] [address] [place] [address] [place] MCHC (RBC) [Mass/Vol] 31.9 g/dL Normal 30.5-36.[address] [facility] Comment on above: Order Comment: Speci men Type: BLOOD SPECIMEN Ordering Facility: [facility] Address: [address] [place] [address], [place] [address] Performed By: #### 5 7021-8 #### [facility] CLIA [id number] [address] [place] [address] [place] MCV (RBC) [Entitic vol] 83.0 fL Normal 80.0-100.0 [facility] Comment on above: Order Comment: Speci men Type: BLOOD SPECIMEN Ordering Facility: [facility] Address: [address] [place] [address] Performed By: #### 5 7021-8 #### [facility] CLIA [id number] [address] [place] [address] [place] Monocytes (Bld) [#/Vol] 0.87 10*3/uL High <0.87 [facility] Comment on above: Order Comment: Speci men Type: BLOOD SPECIMEN Ordering Facility: [facility] Address: [address] [place] [address] Performed By: #### 5 7021-8 #### [facility] CLIA [id number] [address] [place] [address] [place] Monocytes/100 WBC (Bld) 7.8 % Normal [facility] Comment on above: Order Comment: Speci men Type: BLOOD SPECIMEN Ordering Facility: [facility] Address: [address] [place] [address] Performed By: #### 5 7021-8 #### [facility] CLIA [id number] [address] [place] [address] [place] Neutrophils (Bld) [#/Vol] 6.84 10*3/uL Normal 1.45-7.50 [facility] Comment on above: Order Comment: Speci men Type: BLOOD SPECIMEN Ordering Facility: [facility] Address: [address] [place] [address] Performed By: #### 5 7021-8 #### [facility] CLIA [id number] [address] [place] [address] [place] Neutrophils/100 WBC (Bld) 61.3 % Normal [facility] Comment on above: Order Comment: Speci men Type: BLOOD SPECIMEN Ordering Facility: [facility] Address: [address] [place] [address] Performed By: #### 5 7021-8 #### [facility] CLIA [id number] [address] [place] [address] [place] Nucleated RBC (Bld) [#/Vol] 10*3/uL Normal <0.01 [facility] Comment on above: Order Comment: Speci men Type: BLOOD SPECIMEN Ordering Facility: [facility] Address: [address] [place] [address] Performed By: #### 5 7021-8 #### [facility] CLIA [id number] [address] [place] [address] [place] Nucleated RBC/100 WBC (Bld) [Ratio] 0.0 /100 WBC Normal [facility] Comment on above: Order Comment: Speci men Type: BLOOD SPECIMEN Ordering Facility: [facility] Address: [address] [place] [address] Performed By: #### 5 7021-8 #### [facility] CLIA [id number] [address] [place] [address] [place] Platelet mean volume (Bld) [Entitic vol] 9.2 fL Normal 9.0-12.7 [facility] Comment on above: Order Comment: Speci men Type: BLOOD SPECIMEN Ordering Facility: [facility] Address: [address] [place] [address] Performed By: #### 5 7021-8 #### [facility] CLIA [id number] [address] [place] [address] [place] Platelets (Bld) [#/Vol] 299 10*3/uL Normal 150-400 [facility] Comment on above: Order Comment: Speci men Type: BLOOD SPECIMEN Ordering Facility: [facility] Address: [address] [place] [address] Performed By: #### 5 7021-8 #### [facility] CLIA [id number] [facility] [place] [address] [place] RBC (Bld) [#/Vol] 4.76 10*6/uL Normal 4.20-6.00 [facility] Comment on above: Order Comment: Speci men Type: BLOOD SPECIMEN Ordering Facility: [facility] Address: [address] [place] [address] Performed By: #### 5 7021-8 #### [facility] CLIA [id number] [address] [place] [address] [place] WBC (Bld) [#/Vol] 11.15 10*3/uL High 3.70-11.00 [facility] Comment on above: Order Comment: Speci men Type: BLOOD SPECIMEN Ordering Facility: [facility] Address: [address] [place] [address] Performed By: #### 5 7021-8 #### [facility] CLIA [id number] [address] [place] [address] [place] Comprehensive metabolic 2000 panelon 04-11-2024 Albumin [Mass/Vol] 4.0 g/dL Normal 3.9-4.9 [facility] Comment on above: Order Comment: Speci men Type: BLOOD SPECIMEN Ordering Facility: [facility] Address: [address] [place] [address] Performed By: #### 2 4323-8 #### [facility] CLIA [id number] [address] [id number] [address] [place] ALP [Catalytic activity/Vol] 101 U/L Normal 38-113 [facility] Comment on above: Order Comment: Speci men Type: BLOOD SPECIMEN Ordering Facility: [facility] Address: [address] [facility], [place] [address] Performed By: #### 2 4323-8 #### [facility] CLIA [id number] [address] [place] [address] [place] ALT [Catalytic activity/Vol] 14 U/L Normal 10-54 [facility] Comment on above: Order Comment: Speci men Type: BLOOD SPECIMEN Ordering Facility: [facility] Address: [address] [place] [address], [place] [address] Performed By: #### 2 4323-8 #### [facility] CLIA [id number] [address] [place] [address] [place] Anion gap [Moles/Vol] 13 mmol/L Normal 9-[address] [facility] Comment on above: Order Comment: Speci men Type: BLOOD SPECIMEN Ordering Facility: [facility] Address: [address] [place] [address], [place] [address] Performed By: #### 2 4323-8 #### [facility] CLIA [id number] [address] [place] [address] [place] AST [Catalytic activity/Vol] 13 U/L Low 14-40 [facility] Comment on above: Order Comment: Speci men Type: BLOOD SPECIMEN Ordering Facility: [facility] Address: [address] [facility], [place] [address] Performed By: #### 2 4323-8 #### [facility] CLIA [id number] [address] [place] [address] [place] Bilirubin [Mass/Vol] 0.2 mg/dL Normal 0.2-1.3 [facility] Comment on above: Order Comment: Speci men Type: BLOOD SPECIMEN Ordering Facility: [facility] Address: [address] [place] [address], [place] [address] Performed By: #### 2 4323-8 #### [facility] CLIA [id number] [address] [place] [address] [place] Calcium [Mass/Vol] 9.6 mg/dL Normal 8.5-10.2 [facility] Comment on above: Order Comment: Speci men Type: BLOOD SPECIMEN Ordering Facility: [facility] Address: [address] [place] [address], [place] [address] Performed By: #### 2 4323-8 #### [facility] CLIA [id number] [address] [place] [address] [place] Chloride [Moles/Vol] 109 mmol/L High 97-105 [facility] Comment on above: Order Comment: Speci men Type: BLOOD SPECIMEN Ordering Facility: [facility] Address: [address] [place] [address], [place] [address] Performed By: #### 2 4323-8 #### [facility] CLIA [id number] [address] [place] [address] [place] CO2 [Moles/Vol] 19 mmol/L Low 22-30 [facility] Comment on above: Order Comment: Speci men Type: BLOOD SPECIMEN Ordering Facility: [facility] Address: [address] [place] [address], [place] [address] Performed By: #### 2 4323-8 #### [facility] CLIA [id number] [address] [place] [id number] [place] Creatinine [Mass/Vol] 1.66 mg/dL High 0.73-1.[address] [facility] Comment on above: Order Comment: Speci men Type: BLOOD SPECIMEN Ordering Facility: [facility] Address: [address] [place] [address], [place] [address] Performed By: #### 2 4323-8 #### [facility] CLIA [id number] [address] [place] [address] [place] Creatinine and Glomerular filtration rate.predicted panel (S/P/Bld) 45 mL/min/1.73m??? Low >=60 [facility] Comment on above: Order Comment: Madi tian Type: BLOOD SPECIMEN Ordering Facility: [facility] Address: [address] [place] [address], [place] [address] Result Comment: Sally mated Glomerular Filtration Rate (eGFR) is calculated using the 2020 CKD-EPI creatinine equation. This equation utilizes serum creatinine, sex, and age as parameters. The creatinine assay has traceable calibration to isotope dilution-mass spectrometry. Refer to KDIGO guidelines for clinical interpretation. In patients with unstable renal function, e.g. those with acute kidney injury, the eGFR may not accurately reflect actual GFR. Performed By: #### 2 4323-8 #### [facility] CLIA [id number] [address] [place] [address] [place] Glucose [Mass/Vol] 144 mg/dL High 74-99 [facility] Comment on above: Order Comment: Madi tian Type: BLOOD SPECIMEN Ordering Facility: [facility] Address: [address] [place] [address], [place] [address] Result Comment: The [place] [employer] (ADA) provides guidance for cutoff values for fasting glucose and random glucose. The ADA defines fasting as no caloric intake for at least 8 hours. Fasting plasma glucose results between 100 to 125 mg/dL indicate increased risk for diabetes (prediabetes). Fasting plasma glucose results greater than or equal to 126 mg/dL meet the criteria for diagnosis of diabetes. In the absence of unequivocal hyperglycemia, results should be confirmed by repeat testing. In a patient with classic symptoms of hyperglycemia or hyperglycemic crisis, random plasma glucose results greater than or equal to 200 mg/dL meet the criteria for diagnosis of diabetes. Reference: Standards of Medical Care in Diabetes 2016, [place] [employer]. Diabetes Care. 2016.39(Suppl 1). Performed By: #### 2 4323-8 #### [facility] CLIA [id number] [address] [place] [id number] [place] Potassium [Moles/Vol] 5.1 mmol/L Normal 3.7-5.[address] [facility] Comment on above: Order Comment: Speci men Type: BLOOD SPECIMEN Ordering Facility: [facility] Address: [address] [place] [address], [place] [address] Performed By: #### 2 4323-8 #### [facility] CLIA [id number] [address] [place] [id number] [place] Protein [Mass/Vol] 7.8 g/dL Normal 6.3-8.0 [facility] Comment on above: Order Comment: Speci men Type: BLOOD SPECIMEN Ordering Facility: [facility] Address: [address] [place] [address], [place] [address] Performed By: #### 2 4323-8 #### [facility] CLIA [id number] [address] [place] [address] [place] Sodium [Moles/Vol] 141 mmol/L Normal 136-144 [facility] Comment on above: Order Comment: Speci men Type: BLOOD SPECIMEN Ordering Facility: [facility] Address: [address] [place] [address], [place] [address] Performed By: #### 2 4323-8 #### [facility] CLIA [id number] [address] [place], [place] [address] [place] Urea nitrogen [Mass/Vol] 37 mg/dL High 9-24 [facility] Comment on above: Order Comment: Speci men Type: BLOOD SPECIMEN Ordering Facility: [facility] Address: [address] [place] [address], [place] [address] Performed By: #### 2 4323-8 #### [facility] CLIA [id number] [address] [place], [place] [address] [place] Microalbumin Ur-mCncon 04-11 Albumin DL <= 20 mg/L (U) [Mass/Vol] 54.5 mg/L Normal [facility] Comment on above: Order Comment: Speci men Type: URINE SPECIMEN Ordering Facility: [facility] Address: [address] [facility], [place] [address] Performed By: #### 1 4957-5 #### [facility] CLIA [id number] [address] [place], [place] [address] [place] Absolute lymphocyte countOrd ered By: Danilo Parra on 03-25-2024 Lymphocytes Auto (Unsp spec) [#/Vol] 1.92 10*3/uL 0.83-4.51 [facility] Automated lymphocyte count a s percentage of total leukocytesOrdered By: Danilo Parra on 03-25-2024 Lymphocytes/100 WBC Auto (Unsp spec) 28.1 % 19-41 [facility] Basophil percentageOrdered B y: Danilo Parra on 03-25-2024 Basophils/100 WBC (Bld) 0.6 % 0-1 [facility] Chloride [Moles/Vol] 112 mmol/L 98-107 [facility] Cholesterol [Mass/Vol] 217 mg/dL <200 [facility] Comment on above: <200 mg/dL Desirable 200-240 mg/dL Borderline >240 mg/dL High Risk Eosinophils/100 WBC (Bld) 1.9 % 0-5 [facility] Glucose [Mass/Vol] 296 mg/dL 74-106 [facility] Comment on above: Glucose result great er than or equal to 200 mg/dLsuggests DIABETES MELLITUS per A.D.A. criteria. Hemoglobin (Bld) [Mass/Vol] 13.0 g/dL 13.0-16.5 [facility] Monocytes/100 WBC (Bld) 9.5 % 0-10 [facility] Neutrophils (Bld) [#/Vol] 4.0 10*3/uL 2.0-7.7 [facility] Neutrophils/100 WBC (Bld) 58.9 % 47-70 [facility] Potassium [Moles/Vol] 3.8 mmol/L 3.5-5.1 [place] [facility] Sodium [Moles/Vol] 138 mmol/L 136-145 [facility] Triglyceride [Mass/Vol] 445 mg/dL <199 [facility] Comment on above: The drugs N-Acetylcy steine and Metamizole may falsely depress this assay. TRIGLYCERIDE IS GREATER THAN 400 mg/dL. LDL RESULT IS INVALID AND WILL NOT BE REPORTED.Serum Triglycerides Reference Interval Normal <150 mg/dL Borderline high 150 - 199 mg/dL High 200 - 499 mg/dL Very High > or = 500 mg/dL WBC (Bld) [#/Vol] 6.8 10*3/uL 4.4-11.0 [facility] Determination of erythrocyte mean corpuscular volume (MCV)Ordered By: Danilo Parra on 03-25-2024 MCV (RBC) [Entitic vol] 83.0 fL 80-94 [facility] Erythrocyte distribution wid th ratioOrdered By: Danilo Parra on 03-25-2024 Erythrocyte distribution width (RBC) [Ratio] 15.1 % 11.6-14.6 [facility] Erythrocyte distribution wid th standard deviationOrdered By: Daniloeva Parra on 03-25-2024 Erythrocyte distribution width (RBC) [Entitic vol] 45.5 fL 35.1-43.9 [facility] Hematocrit Auto (Bld) [Volum e fraction]Ordered By: Danilo Parra on 03-25-2024 Hematocrit (Bld) [Volume fraction] 41.5 % 40-54 [facility] Immature granulocytes/100 WB C Auto (Bld)Ordered By: Daniloeva Parra on 03-25-2024 Immature granulocytes/100 WBC (Bld) 1.000 % 0.0-0.9 [facility] Comment on above: IG% - Immature Granu locytes (promyelocytes, myelocytes and metamyelocytes) > 1% indicates that a LEFT SHIFT is Present. Laboratory - Chemistry and C hemistry - challengeOrdered By: Danilo Parra on 03-25-2024 Cholesterol in HDL [Mass/Vol] 22 mg/dL >40 [facility] Comment on above: The drugs N-Acetylcy steine and Metamizole may falsely depress this assay. Reference Range HDL <40 mg/dL Low HDL Cholesterol HDL >or= 60 mg/dL High HDL Cholesterol CO2 [Moles/Vol] 21.0 mmol/L 21.0-32.0 [facility] Urea nitrogen/Creatinine [Mass ratio] 12.7 mg/mg 10-20 [facility] Laboratory - Hematology and Cell countsOrdered By: Danilo Parra on 03-25-2024 MCH (RBC) [Entitic mass] 26.0 pg 27.0-32.0 [facility] MCHC (RBC) [Mass/Vol] 31.3 g/dL 32-36 [facility] Nucleated RBC/100 WBC (Bld) [Ratio] 0 % 0-5 [facility] Platelet mean volume (Bld) [Entitic vol] 9.3 fL 6.2-12.0 [facility] Platelets (Bld) [#/Vol] 236 10*3/uL 150-450 [facility] No Panel InformationOrdered By: Danilo Parra on 03-25-2024 Estimated Creatinine Clearance Calc 62.59 ml/min [facility] Estimated GFR (MDRD) Amer 64 mL/min >60 [facility] Comment on above: GFR Calc Estimated GFR (MDRD) Non-Af Amer 53 mL/min >60 [facility] Comment on above: Non- GFR Calc LDL Cholesterol [facility] Comment on above: Test not performed VLDL Cholesterol [facility] Comment on above: Test not performed RBC Auto (Bld) [#/Vol]Ordere d By: Danilo Parra on 03-25-2024 RBC (Bld) [#/Vol] 5.00 10*6/uL 4.6-6.2 [facility] Serum or plasma calcium jarrett urement (mass/volume)Ordered By: Danilo Parra on 03-25-2024 Calcium [Mass/Vol] 8.2 mg/dL 8.5-10.1 [facility] Serum or plasma creatinine m easurement (mass/volume)Ordered By: Danilo Parra on 03-25-2024 Creatinine [Mass/Vol] 1.42 mg/dL 0.70-1.30 [facility] Comment on above: The validity of the calculated GFR & GFRAA in patients over 70 years has not been determined. Clinical correlation is essential. Serum or plasma urea nitroge n measurement (mass/volume)Ordered By: Danilo Parra on 03-25-2024 Urea nitrogen [Mass/Vol] 18 mg/dL 7-18 [facility] Thin prep Papanicolaou smear with manual screeningOrdered By: Danilo Parra on 03-25-2024 Thin prep Papanicolaou smear with manual screening 215 mg/dL 74-106 [facility] Comment on above: MANAGEMENT OF PATIEN T CARE PER NURSING PROTOCOL Thin prep Papanicolaou smear with manual screening 5 5-15 [facility] Serum or plasma trough vanco mycin levelOrdered By: Shantal Dumont on 03-23-2024 Vancomycin trough [Mass/Vol] 12.4 ug/mL 5.0-15.0 [facility] Comment on above: VANCOMYCIN STANDARED DRUG THERAPY TROUGH LEVEL: 5.0 - 15.0 mg/L VANCOMYCIN HIGH INTENSITY THERAPY TROUGH LEVEL: 15.0 - 20.0 mg/L High Intensity therapy recommended for serious lifethreatening infections include:- Mkpqtwvnmb-Scdvjjzqekds-Mxkirhusb (Ventilator/Healtcare Associated)-Sepsis PLEASE CONTACT PHARMACY SERVICES (#9399) FOR INTERPRETATIONOF RESULTS. Basophil percentageOrdered B y: Shantal Dumont on 03-22-2024 Bilirubin [Mass/Vol] 0.40 mg/dL 0.20-1.00 [facility] Comment on above: For patients on eltr ombopag therapy, use of Dimension [place] TBIL is not recommended. Protein [Mass/Vol] 6.9 g/dL 6.4-8.2 [facility] Laboratory - Chemistry and C hemistry - challengeOrdered By: Shantal Dumont on 03-22-2024 Albumin/Globulin [Mass ratio] 0.7 {ratio} 0.9-2.4 [facility] ALP [Catalytic activity/Vol] 138 U/L 45-117 [facility] ALT [Catalytic activity/Vol] 15 U/L 16-61 [facility] Globulin (S) [Mass/Vol] 4.1 g/dL 2.2-4.2 [facility] No Panel InformationOrdered By: Shantal Dumont on 03-22-2024 Troponin I High Sensitivity 48 pg/mL 3.0-78.0 [facility] Comment on above: Please Note: New Amanda t Units and Gender Specific Reference Ranges. For more information see Policy Stat Procedure [place] High Sensitivity Troponin (TNIH) and attachments. Thin prep Papanicolaou smear with manual screeningOrdered By: Shantal Dumont on 03-22-2024 Thin prep Papanicolaou smear with manual screening 2.8 g/dL 3.2-5.0 [facility] Thin prep Papanicolaou smear with manual screening 8 U/L 15-37 [facility] Absolute lymphocyte countOrd ered By: Ho Gutierrez on 03-21-2024 Lymphocytes Auto (Unsp spec) [#/Vol] 1.86 10*3/uL 0.83-4.51 [facility] Activated partial thrombopla stin time (aPTT) in platelet poor plasma by coagulation aOrdered By: Ho Gutierrez on 03-21-2024 aPTT Coag (PPP) [Time] 25.1 s 24.1-36.2 [facility] Automated lymphocyte count a s percentage of total leukocytesOrdered By: Ho Gutierrez on 03-21-2024 Lymphocytes/100 WBC Auto (Unsp spec) 15.4 % 19-41 [facility] Basophil percentageOrdered B y: Ho Gutierrez on 03-21-2024 Ammonia (P) [Moles/Vol] 24.0 umol/L 11-32 [facility] Basophil percentage 0 SEEN /hpf 0-5 [facility] Basophils/100 WBC (Bld) 0.5 % 0-1 [facility] Chloride [Moles/Vol] 102 mmol/L 98-107 [facility] Eosinophils/100 WBC (Bld) 0.2 % 0-5 [facility] Glucose [Mass/Vol] 603 mg/dL 74-106 [facility] Comment on above: Critical Result(s) C alled at: 13:28:53 03/21/2024 by: ZENIA ALLEN to ERIK CARDENAS. Results read back by same.Glucose result greater than or equal to 200 mg/dLsuggests DIABETES MELLITUS per A.D.A. criteria. Hemoglobin (Bld) [Mass/Vol] 15.4 g/dL 13.0-16.5 [facility] Monocytes/100 WBC (Bld) 6.3 % 0-10 [facility] Neutrophils (Bld) [#/Vol] 9.2 10*3/uL 2.0-7.7 [facility] Neutrophils/100 WBC (Bld) 76.6 % 47-70 [facility] Potassium [Moles/Vol] 4.3 mmol/L 3.5-5.1 [facility] Sodium [Moles/Vol] 133 mmol/L 136-145 [facility] WBC (Bld) [#/Vol] 12.0 10*3/uL 4.4-11.0 [facility] Bilirubin Test strip Ql (U)O rdered By: Ho Gutierrez on 03-21-2024 Bilirubin Ql (U) Negative Negative [facility] Determination of erythrocyte mean corpuscular volume (MCV)Ordered By: Ho Gutierrez on 03-21-2024 MCV (RBC) [Entitic vol] 79.3 fL 80-94 [facility] Erythrocyte distribution wid th ratioOrdered By: Ho Gutierrez on 03-21-2024 Erythrocyte distribution width (RBC) [Ratio] 14.4 % 11.6-14.6 [facility] Erythrocyte distribution wid th standard deviationOrdered By: Ho Gutierrez on 03-21-2024 Erythrocyte distribution width (RBC) [Entitic vol] 40.6 fL 35.1-43.9 [facility] Hematocrit Auto (Bld) [Volum e fraction]Ordered By: oH Gutierrez on 03-21-2024 Hematocrit (Bld) [Volume fraction] 47.2 % 40-54 [facility] Immature granulocytes/100 WB C Auto (Bld)Ordered By: Ho Gutierrez on 03-21-2024 Immature granulocytes/100 WBC (Bld) 1.000 % 0.0-0.9 [facility] Comment on above: IG% - Immature Granu locytes (promyelocytes, myelocytes and metamyelocytes) > 1% indicates that a LEFT SHIFT is Present. Ketones Test strip Ql (U)Ord ered By: Ho Gutierrez on 03-21-2024 Ketones Ql (U) 5 mg/dl Negative [facility] Laboratory - Chemistry and C hemistry - challengeOrdered By: Shantal Dumont on 03-21-2024 Cobalamin (Vitamin B12) [Mass/Vol] 625 pg/mL 211-911 [facility] Laboratory - Chemistry and C hemistry - challengeOrdered By: Ho Gutierrez on 03-21-2024 CK [Catalytic activity/Vol] 123 U/L 39-308 [facility] CO2 [Moles/Vol] 22.0 mmol/L 21.0-32.0 [facility] Urea nitrogen/Creatinine [Mass ratio] 19.0 mg/mg 10-20 [facility] Laboratory - CoagulationOrde red By: Ho Gutierrez on 03-21-2024 INR Coag (Bld) [Relative time] 1.1 {INR} [facility] PT Coag (PPP) [Time] 13.9 s 11.7-14.9 [facility] Laboratory - Drug toxicology Ordered By: Ho Gutierrez on 03-21-2024 Amphetamines Ql (U) Negative <1000 ng/mL [facility] Benzodiazepines Ql (U) Negative < 200 ng/mL [facility] Cannabinoids Screen Ql (U) Negative < 50 ng/mL [facility] Cocaine Ql (U) Negative < 300 ng/mL [facility] Opiates Ql (U) Negative < 300 ng/mL [facility] Laboratory - Hematology and Cell countsOrdered By: Ho Gutierrez on 03-21-2024 MCH (RBC) [Entitic mass] 25.9 pg 27.0-32.0 [facility] MCHC (RBC) [Mass/Vol] 32.6 g/dL 32-36 [facility] Nucleated RBC/100 WBC (Bld) [Ratio] 0 % 0-5 [facility] Platelet mean volume (Bld) [Entitic vol] 9.3 fL 6.2-12.0 [facility] Platelets (Bld) [#/Vol] 264 10*3/uL 150-450 [facility] Mucus LM Ql (Urine sed)Order ed By: Ho Gutierrez on 03-21-2024 Mucus Ql (Urine sed) 0 SEEN /hpf [facility] Nitrite Test strip Ql (U)Ord ered By: Ho Gutierrez on 03-21-2024 Nitrite Ql (U) Negative Negative [facility] No Panel InformationOrdered By: Ho Gutierrez on 03-21-2024 Ethyl Alcohol Level < 3.0 mg/dL [facility] Comment on above: The serum:whole bloo d ethanol ratio is approximately 1.14and varies slightly with hematocrit. Medical Alcohol reference interval and critical value innon-tolerant individuals; 50 - 100 Impairment 100 Intoxication 100 - 250 Severe Poisoning 250 - 400 Deep/possible fatal coma MDMA (Ecstasy) Screen Negative < 500 ng/mL [facility] Urine Barbiturates Screen Negative < 200 ng/mL [facility] Urine Drug Screen Comment [facility] Comment on above: CONFIRMATORY TESTING FOR ALL POSITIVE URINE DRUG SCREENRESULTS WILL ONLY BE SENT OUT UPON PHYSICIAN ORDER. VISTA Urine Drug Screen methods provide only preliminaryanalytical test results. A more specific alternate chemicalmethod must be used in order to obtain a confirmedanalytical result. Gas chromatography/mass spectrometery(GC/MS) is the preferred confirmatory method. Clinicalconsideration and professional judgement should be appliedto any drug of abuse test result, particularly whenpreliminary positive results are used. URINE TCA TESTING MUST BE ORDERED SEPARATELY. USE TESTMNEMONIC: [facility] Urine Methadone Screen Negative < 300 ng/mL [facility] Urine RBC 0-5 SEEN /hpf 0-5 [facility] Estimated Creatinine Clearance Calc 48.30 ml/min [facility] Estimated GFR (MDRD) Amer 47 mL/min >60 [facility] Comment on above: GFR Calc Estimated GFR (MDRD) Non-Af Amer 39 mL/min >60 [facility] Comment on above: Non- GFR Calc Troponin I High Sensitivity 29 pg/mL 3.0-78.0 [facility] Comment on above: Please Note: New Amanda t Units and Gender Specific Reference Ranges. For more information see Policy Stat Procedure [place] High Sensitivity Troponin (TNIH) and attachments. No Panel InformationOrdered By: Shantal Dumont on 03-21-2024 Folate 9.30 ng/mL 3.1-55.4 [facility] Protein Test strip Ql (U)Ord ered By: Ho Gutierrez on 03-21-2024 Protein Ql (U) 30 mg/dl Negative [facility] RBC Auto (Bld) [#/Vol]Ordere d By: Ho Gutierrez on 03-21-2024 RBC (Bld) [#/Vol] 5.95 10*6/uL 4.6-6.2 [facility] Serum or plasma acetone jarrett urement (mass/volume)Ordered By: Ho Gutierrez on 03-21-2024 Acetone [Mass/Vol] Negative NEG [facility] Serum or plasma calcium jarrett urement (mass/volume)Ordered By: Ho Gutierrez on 03-21-2024 Calcium [Mass/Vol] 9.4 mg/dL 8.5-10.1 [facility] Serum or plasma creatinine m easurement (mass/volume)Ordered By: Ho Gutierrez on 03-21-2024 Creatinine [Mass/Vol] 1.84 mg/dL 0.70-1.30 [facility] Comment on above: The validity of the calculated GFR & GFRAA in patients over 70 years has not been determined. Clinical correlation is essential. Serum or plasma thyroid stim ulating hormone (TSH) measurement (units/volume)Ordered By: Shantal Dumont on 03-21-2024 TSH Qn 1.40 uIU/mL 0.358-3.74 [facility] Serum or plasma urea nitroge n measurement (mass/volume)Ordered By: Ho Gutierrez on 03-21-2024 Urea nitrogen [Mass/Vol] 35 mg/dL 7-18 [facility] Squamous epithelial cells de tection in urine sediment by light microscopyOrdered By: Ho Gutierrez on 03-21-2024 Epithelial cells.squamous LM Ql (Urine sed) 0 SEEN /hpf 0-5 [facility] Thin prep Papanicolaou smear with manual screeningOrdered By: Shantal Dumont on 03-21-2024 Thin prep Papanicolaou smear with manual screening 442 mg/dL 74-106 [facility] Comment on above: MANAGEMENT OF PATIEN T CARE PER NURSING PROTOCOL Thin prep Papanicolaou smear with manual screeningOrdered By: Ho Gutierrez on 03-21-2024 Thin prep Papanicolaou smear with manual screening 9 5-15 [facility] Urine blood detectionOrdered By: Ho Gutierrez on 03-21-2024 RBC Ql (U) 50 /ul Negative [facility] Urine clarityOrdered By: Wood Gutierrez on 03-21-2024 Clarity (U) Clear Clear [facility] Urine color determinationOrd ered By: Ho Gutierrez on 03-21-2024 Color (U) Yellow Yellow [facility] Urine glucose detectionOrder ed By: Ho Gutierrez on 03-21-2024 Glucose Ql (U) 1000 mg/dl Normal [facility] Urine leukocyte esterase det ection by dipstickOrdered By: Ho Gutierrez on 03-21-2024 Leukocyte esterase Test strip Ql (U) Negative Negative [facility] Urine pHOrdered By: Ho johnson on 03-21-2024 pH (U) 6.0 [pH] 5.0 - 8.0 [facility] Urine phencyclidine (PCP) de tectionOrdered By: Ho Gutierrez on 03-21-2024 Phencyclidine Ql (U) Negative < 25 ng/mL [facility] Urine sediment bacteria coun t by microscopy (number/high power field)Ordered By: Ho Gutierrez on 03-21-2024 Bacteria LM.HPF (Urine sed) [#/Area] 0 /[HPF] None Seen [facility] Urine specific gravity measu rementOrdered By: Ho Gutierrez on 03-21-2024 Specific gravity (U) [Rel density] 1.010 1.002-1.030 [facility] Urine urobilinogen measureme ntOrdered By: Ho Gutierrez on 03-21-2024 Urobilinogen Ql (U) Normal mg/dl Normal [facility] Whole blood hemoglobin A1c/t otal hemoglobin ratio (mass fraction)Ordered By: Shantal Dumont on 03-21-2024 HbA1c (Bld) [Mass fraction] 11.7 % 3.8-5.6 [facility] Comment on above: Normal < 5.7 % Predi abetic 5.7 - 6.4 % Diabetic >or= 6.5 % Please note range changes. Vital Signs Date Time Vital Sign Value Performing Clinician Facility 03-25-2024 15:46-0400 Body temperature 97.6 [degF] No Primary Care Physician [facility] 03-25-2024 15:46-0400 Diastolic blood pressure 72 mm[Hg] No Primary Care Physician [facility] 03-25-2024 15:46-0400 Heart rate 79 /min No Primary Care Physician [facility] 03-25-2024 15:46-0400 Respiratory rate 18 /min No Primary Care Physician [facility] 03-25-2024 15:46-0400 SaO2% (BldA) [Mass fraction] 98 % No Primary Care Physician [facility] 03-25-2024 15:46-0400 Systolic blood pressure 138 mm[Hg] No Primary Care Physician [facility] 03-22-2024 15:25-0400 Body height 168 cm No Primary Care Physician [facility] 03-22-2024 15:25-0400 Body weight 126.5 kg No Primary Care Physician [facility] 03-21-2024 17:19-0400 Body temperature 98.1 [degF] [facility] 03-21-2024 17:19-0400 Diastolic blood pressure 114 mm[Hg] [facility] 03-21-2024 17:19-0400 Heart rate 113 /min [facility] 03-21-2024 17:19-0400 Respiratory rate 25 /min [facility] 03-21-2024 17:19-0400 SaO2% (BldA) [Mass fraction] 92 % [facility] 03-21-2024 17:19-0400 Systolic blood pressure 183 mm[Hg] [facility] 03-21-2024 12:31-0400 Body height 168 cm [facility] 03-21-2024 12:31-0400 Body mass index (BMI) [Ratio] 44.8 kg/m2 [facility] 03-21-2024 12:31-0400 Body weight 126.5 kg [facility] 09-20-2023 18:03-0500 Body temperature 98.78 [degF] JACOB BANSAL MD [facility] 09-20-2023 18:03-0500 Diastolic Blood Pressure Non-Invasive 97 1 JACOB BANSAL MD [facility] 09-20-2023 18:03-0500 Heart rate 72 /min JACOB BANSAL MD [facility] 09-20-2023 18:03-0500 Respiratory rate 24 /min JACOB BANSAL MD [facility] 09-20-2023 18:03-0500 Systolic Blood Pressure Non-Invasive 154 1 JACOB BANSAL MD [facility] Encounters Encounter Date Encounter Type Care Provider Facility Start: 09-18-2025 ambulatory Zebulun Beam VSC Facili ty:[facility] Start: 04-11-2024 End: 04-12-2024 ambulatory Facility:[facility] Start: 03-25-2024 Non-patient / Non-visit No Vera sanchze [facility] [place] Physician [facility] Work Phone: Start: 03-24-2024 Non-patient / Non-visit No Vera sanchez [facility] [place] Physician [facility] Work Phone: Start: 03-23-2024 Non-patient / Non-visit No Vera sanchez [facility] [place] Physician [facility] Work Phone: Start: 03-22-2024 Non-patient / Non-visit No Vera sanchez [facility] [place] Physician [facility] Work Phone: Start: 03-22-2024 Non-patient / Non-visit No Vera Ulloa Physician [facility] Start: 03-21-2024 End: 03-25-2024 Evaluation and management of inpatient [facility] Work Phone: Start: 09-20-2023 End: 09-20-2023 Emergency department patient visit JACOB BANSAL MD Facility:[facility] Start: 09-20-2023 End: 09-20-2023 Emergency department patient visit JACOB BANSAL MD [facility] Procedures Date Procedure Procedure Detail Performing Clinician Start: 03-21-2024 Plain chest X-ray Start: 03-21-2024 CT cervical spine wi thout contrast Start: 03-21-2024 CT of head without contrast Plan of Treatment Date Care Activity Detail Author Start: 03-25-2024 Patient discharge [facility] Start: 03-25-2024 [facility] Start: 03-24-2024 Care planning and problem solving actions [facility] Start: 03-24-2024 [facility] Start: 03-22-2024 [facility] Start: 03-21-2024 Following clinical pathway protocol [facility] Start: 03-21-2024 Assessment of risk of venous thromboembolism [facility] Start: 03-21-2024 Care regimes management [facility] Start: 03-21-2024 Fall prevention [facility] Start: 03-21-2024 Insertion of catheter into peripheral vein [facility] Start: 03-21-2024 Measuring intake and output [facility] Start: 03-21-2024 Notification of physician [facility] Start: 03-21-2024 Providing care according to standard [facility] Start: 03-21-2024 Provision of activity privileges [facility] Start: 03-21-2024 Referral to occupational therapist [facility] Start: 03-21-2024 Referral to service [facility] Start: 03-21-2024 End: 03-21-2024 Blood culture [facility] Start: 03-21-2024 Verification routine [facility] Start: 03-21-2024 Admission procedure [facility] Start: 03-21-2024 Bacteria identified in Blood by Culture Blood Culture [facility] Start: 03-21-2024 End: 03-21-2024 [facility] Start: 03-21-2024 Patient referral to dietitian [facility] Patient Education Diabetes and H eart Disease Diabetes and Kidney Disease Diabetes Exercise Starting Diabetes Carbs Fats Protein ED Hypertension New Begin Treatment Diabetes and High Blood Pressure [facility] Work Phone: Patient referral [facility] Work Phone: Payers Date Payer Category Payer Self-pay [id number] 2025 Unknown [id number] 2024 Unknown [id number] 2023 Private Health Insurance [id number] 1955 Unknown [id number] Medicaid MEDICAID [id number] Unknown [employer] * *CANT SEE [id number] Unknown [id number] Social History Date Type Detail Facility Start: 05-08-2020 Tobacco smoking status Heavy t obacco smoker (finding) [facility] Sex Assigned At Sex [facility] Start: 03-21-2024 End: 03-22-2024 Tobacco smoking status MAIS Unknown if ever smoked [facility] Start: 1955 Sex Assigned At Male [facility] Goals Date Patient Goal Desired Activity /State Functional Status Date Assessment Result Facility 03-25-2024 Functional status Ambulates [facility] Work Phone: 03-24-2024 Functional status Assistive Devices None [facility] Work Phone: Mental Status Date Assessment Result Facility 03-25-2024 Cognitive function Voice/Name [facility] Work Phone: 03-21-2024 Cognitive function Voice/Name [facility] Work Phone: Clinical Notes 03-21-2024 to 03-25-2024 Note Date & Type Note Facility 03-25-2024 Discharge summary Note Date/Time March 25, 2024 2:59pm [facility] Medical Records Department [address] [place] [id number] Discharge Summary 03/25/24 1457 MR#: [id number] Acct: [id number] Name: JAHAIRA MAHMOOD Rep #:[id number] : 1955 68 From: Danilo simon MD PCP: Care Physician,No Primary Status :ADM IN Location: [place] [address] Providers Date of Admission: 03/21/24 Primary Care Physician: No Primary Care Phys Reason For Visit: ACUTE ENCEPHALOPATHY, HYPERGLYCEMIA Diagnosis Discharge Diagnosis (1) Encephalopathy: Status: Acute Code(s): G93.40 - Encephalopathy, unspecified (2) Hyperglycemia: Status: Acute Code(s): R73.9 - Hyperglycemia, unspecified (3) JACQUELYN (acute kidney injury): Status: Acute Code(s): N17.9 - Acute kidney failure, unspecified Medications at Discharge Home Medications amlodipine 10 mg tablet 10 mg PO DAILY 30 days #30 tabs 03/25/24 atorvastatin 20 mg tablet 20 mg PO QHS 30 days #30 tabs 03/25/24 carvedilol 3.125 mg tablet 3.125 mg PO BID 30 days #60 tabs 03/25/24 insulin glargine-yfgn 100 unit/mL (3 mL) subcutaneous pen 20 unit (0.2 mL) subcut BID 30 days #12 mL 03/25/24 lisinopril 5 mg tablet 5 mg PO DAILY 30 days #30 tabs 03/25/24 Hospital Course Operations None Procedures 2-D Echocardiogram Summary of Care Provided Minutes Spent on Discharge: 36 Hospital Course: Per HPI: JAHAIRA MAHMOOD, is a 68 M with no known past medical history was admittedto the ED on 03/16/2024 for altered mental status. Patient had apparently not been himself and could not give much of a history. He was found in his own feces and urine. EMS was called but it is not clear exactly who called the EMS. EMS brought him to the hospital he could not give much of a history. Unable todo review of systems as patient is confused and had received Geodon in the ED onaccount of physical aggression and combativeness. Vitals at time of review a blood pressure of 169/129, pulse rate of 112 range. Rate of 22. Oxygen saturation was 95% on room air. CBC showed WBC of 12, hemoglobin of 15.4 and platelets of 264. INR was 1.1. Chemistry shows sodium of 133 with creatinine of 1.84, with no baseline creatinine in the EMR. Blood glucose was 603 and ammonia level was 24. Bicarb was 22 and anion gap is 9. Total CPK was 123 and initial troponin was 29. Urinalysis showed glucose of 5000 with protein of 30 as well as ketones of 5. There is no evidence of urine leukocyte esterase or urine WBC or urine bacteria. Urine tox was negative and serum acetone level was also negative. CT of the brain showed chronic involutional changes and CT of the cervical spine showed multilevel degenerativechanges as above. Chest x-ray showed no acute cardiopulmonary process and showed moderate cardiomegaly. He has been admitted to be managed for acute encephalopathy in the setting of elevated blood sugar likely due to undiagnosed diabetes mellitus. Hospital Course: 1. 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 Unclear as to the primary cause of his encephalopathy, though it does appear to have significantly improved if not resolved today ? Leukocytosis has resolved, no clear source of infection, antibiotics were discontinued ? Ammonia on admission was unremarkable ? Blood sugars little bit better from admission still elevated above 300 will make adjustments to his insulin ? Continue with IV fluids ? PT/OT ? He has not needed the Haldol during admission so far ? Blood cultures are negative x 48 hours ? A1c on admission was 11.7, will add lisinopril as he is also hypertensive and Coreg. Will also cover with Lipitor and have a lipid panel in the morning 03/25/2024: Blood sugars have been much more stable in the 200s with the adjustment on his insulin. Given his renal function I do not feel comfortable prescribing him right away metformin so we will discharge him on Lantus 20 unitstwice daily as well as outpatient follow-up, he has an appointment on 03/28/2024 with PCP. He will need outpatient lab work evaluating his renal function. I did have extensive discussions with him on dietary adjustments for his diabetes. He was also started on Norvasc, Coreg, and lisinopril both because of his hypertension on admission but also, in regards to his lisinopril, he did have proteinuria on his UA. A lipid panel was also obtained in conjunction with his new diagnosis of type 2 diabetes and did have elevated triglycerides and could not calculate his LDL so he was also started on 20 mg of p.o. atorvastatin on discharge as well. I discussed with him the plan for discharge and he expressedunderstanding of the risk and benefits of going home and would like to go home today. Physical Exam Narrative General: Alert, oriented x 3, cooperative, no acute distress HEENT: Atraumatic, PERRLA, EOMI, Normocephalic Oral: Moist Mucosa Neck: Supple, No JVD Lungs: Diminished, Normal air movement, No rhonchi, No wheeze, No rales Cardiovascular: Regular rate, Regular Rhythm, Normal S1, Normal S2, No murmurs Abdomen: Soft, Non Tender, Non-Distended, No Hepato-splenomegaly Extremities: No edema, Capillary Refill Less than 3 Seconds Skin: No rashes, No breakdown Musculoskeletal: No Tenderness to Palpation of Joints or Extremities Neurological: No focal neurological deficits, motor strength 5/5 in all extremities, sensation intact Psych/Mental Status: Normal affect, appropriate Weight / BMI Weight Weight: 278 lb 14.156 oz Body Mass Index (BMI) 44.8 ABG / Lab / Microbiology Data 03/25/24 05:23 03/25/24 05:23 Laboratory: Laboratory Results - last 24 hr 03/24/24 16:31: POC Glucose 148 H 03/24/24 21:20: POC Glucose 178 H 03/25/24 05:23: WBC 6.8, RBC 5.00, Hgb 13.0, Hct 41.5, MCV 83.0, MCH 26.0 L, MCHC 31.3 L, RDW Std Deviation 45.5 H, RDW Coeff of Crescencio 15.1 H, Plt Count 236, MPV 9.3, Immature Gran % (Auto) 1.000 H, Neut % (Auto) 58.9, Lymph % (Auto) 28.1, Dunn % (Auto) 9.5, Eos % (Auto) 1.9, Baso % (Auto) 0.6, Absolute Neuts (auto) 4.0, Absolute Lymphs (auto) 1.92, Nucleated RBC % 0, Sodium 138, Potassium 3.8, Chloride 112 H, Carbon Dioxide 21.0, Anion Gap 5, BUN 18, Creatinine 1.42 H, Estim Creat Clear Calc 62.59, Est GFR (MDRD) Af Amer 64, Est GFR (MDRD) Non-Af 53 L, BUN/Creatinine Ratio 12.7, Glucose 296 H, Calcium 8.2 L, Triglycerides 445 H, Cholesterol 217 H, LDL Cholesterol TNP, VLDL Cholesterol TNP, HDL Cholesterol 22 L 03/25/24 07:56: POC Glucose 241 H 03/25/24 10:58: POC Glucose 215 H Microbiology: Microbiology 03/21/24 17:26 Blood Culture (Wb) - Anticubital Right Blood Culture - Preliminary No growth in 48 hours. 03/21/24 17:03 Blood Culture (Wb) - Anticubital Right Blood Culture - Preliminary No growth in 48 hours. D/C Instructions Discharge Diet: Low fat / Low cholesterol and Carb Control Diet Call your doctor if you observe: Fever of 101 or Higher, Shortness of breath, Dizziness, Fainting spells, Swelling in the ankles, Chest pain and Increased palpitations (irregular heartbeat) Meaningful Use Info Meaningful Use Meaningful Use Diagnoses (Choose all that apply): None applicable Ischemic Stroke Statin Dosing Therapy Reference: STATIN DOSE THERAPY REFERENCE: * Patients > 75 years receive moderate or high dose statin therapy. * Patients 75 years or YOUNGER should receive HIGH intensity statin dose unless contraindicated. You will be required to document reason for non-treatment if statin daily dose does not meet guidelines. HIGH DOSE STATIN THERAPY DAILY Atorvastatin > than or = to 40 mg Rosuvastatin > than or = to 20 mg Amlodipine + Atorvastatin > than or = to 2.5/40 mg Ezetimibe + Simvastatin 10/80 mg Simvastatin 80mg Discharge Plan Admission Admit Date/Time: 03/21/24 16:18 Attending Provider: Danilo Parra Primary Care Provider: Care Physician,No Primary Consulting Providers: Shantal Dumont Instructions Patient Instructions: Diabetes and Heart Disease, Diabetes and Kidney Disease, Diabetes Exercise Starting, Diabetes Carbs Fats Protein, ED Hypertension New Begin Treatment, Diabetes and High Blood Pressure Additional Instructions / Restrictions: Follow-up with your PCP on 03/28/2024 to obtain lab work to monitor your renal function as you are started on multiple new medications that can affect her kidneys. You also need to likely be started on metformin which is an oral medication for your diabetes if your kidney function allows. Discharge Orders/Prescriptions Prescriptions: New atorvastatin 20 mg Tablet 20 mg PO QHS 30 Days Qty: 30 3RF carvedilol 3.125 mg Tablet 3.125 mg PO BID 30 Days Qty: 60 3RF amlodipine 10 mg Tablet 10 mg PO DAILY 30 Days Qty: 30 3RF lisinopril 5 mg Tablet 5 mg PO DAILY 30 Days Qty: 30 3RF insulin glargine-yfgn 100 unit/mL (3 mL) Insulin Pen 20 unit subcut BID 30 Days Qty: 12 3RF Discontinued hydrocodone-acetaminophen 1 TABLET tablet 1 - 2 tab PO Q4H PRN PRN (Reason: Pain) Qty: 20 0RF prednisone 20 MG tablet 40 mg PO DAILY Qty: 14 0RF Rx Instructions: 1po bid for 7 days hydrocodone-acetaminophen 1 TABLET tablet 1 - 2 tab PO Q4H PRN PRN (Reason: Pain) Qty: 20 0RF colchicine 0.6 MG tablet 0.6 mg PO X1 Qty: 10 0RF indomethacin 25 MG capsule 25 mg PO TIDCM Qty: 15 0RF Referrals / Follow Up: Funmi Cota [Non-Staff] - 03/28/24 11:20 am (Appointment is with Isac Collins N.P. Please arrive 20 minutes prior to appointment. Bring insurance card and photo I.D.) Disposition Disposition (needs filled in before D/C Order can be placed): Home, Self Care Charges/Coding Visit Charges Inpatient E&M: 16977 Disch Hosp >30min 03/25/24 1528 <Electronically signed by Danilo Parra MD> Cosigner Signature (if applicable): CC: Dr. Danilo Parra MD; No Primary Care Physician~ Signed [facility] Work Phone: 1(666) 763-603305-12-2024 Discharge summary Author Danilo Parra [facility] March 25, 2024 2:49pm Note Date/Time March 25, 2024 2:20p m [facility] Medical Records Department [address] [place] [address] Instructions for Home/Discharge Instructions 03/25/24 1420 MR#: [id number] Acct: [id number] Name: JAHAIRA MAHMOOD Rep #:[id number] : 1955 68 From: Danilo simon MD PCP: Care Physician,No Primary Status :ADM IN Discharge Instructions Diet Discharge Diet: Low fat / Low cholesterol and Carb Control Diet Activity Discharge Activity: Return to Normal Activity Dressing / Incision Call your doctor if you observe: Fever of 101 or Higher, Shortness of breath, Dizziness, Fainting spells, Swelling in the ankles, Chest pain and Increased palpitations (irregular heartbeat) Follow Up Care Test Results: Test results from this visit will be discussed in further detail at your follow- up appointment, if applicable. Discharge Plan Admission Admit Date/Time: 03/21/24 16:18 Attending Provider: Danilo Parra Primary Care Provider: Care Physician,No Primary Consulting Providers: Shantal Dumont Instructions Patient Instructions: Diabetes and Heart Disease, Diabetes and Kidney Disease, Diabetes Exercise Starting, Diabetes Carbs Fats Protein, ED Hypertension New Begin Treatment, Diabetes and High Blood Pressure Additional Instructions / Restrictions: Follow-up with your PCP on 03/28/2024 to obtain lab work to monitor your renal function as you are started on multiple new medications that can affect her kidneys. You also need to likely be started on metformin which is an oral medication for your diabetes if your kidney function allows. Discharge Orders/Prescriptions Prescriptions: New atorvastatin 20 mg Tablet 20 mg PO QHS 30 Days Qty: 30 3RF carvedilol 3.125 mg Tablet 3.125 mg PO BID 30 Days Qty: 60 3RF amlodipine 10 mg Tablet 10 mg PO DAILY 30 Days Qty: 30 3RF lisinopril 5 mg Tablet 5 mg PO DAILY 30 Days Qty: 30 3RF insulin glargine-yfgn 100 unit/mL (3 mL) Insulin Pen 20 unit subcut BID 30 Days Qty: 12 3RF Discontinued hydrocodone-acetaminophen 1 TABLET tablet 1 - 2 tab PO Q4H PRN PRN (Reason: Pain) Qty: 20 0RF prednisone 20 MG tablet 40 mg PO DAILY Qty: 14 0RF Rx Instructions: 1po bid for 7 days hydrocodone-acetaminophen 1 TABLET tablet 1 - 2 tab PO Q4H PRN PRN (Reason: Pain) Qty: 20 0RF colchicine 0.6 MG tablet 0.6 mg PO X1 Qty: 10 0RF indomethacin 25 MG capsule 25 mg PO TIDCM Qty: 15 0RF Referrals / Follow Up: [facility] Cota [Non-Staff] - 03/28/24 11:20 am (Appointment is with Isac Collins N.P. Please arrive 20 minutes prior to appointment. Bring insurance card and photo I.D.) Disposition Disposition (needs filled in before D/C Order can be placed): Home, Self Care 03/25/24 2895<Electronically signed by Danilo Parra MD>Danilo Parra MD CC: Dr. Shantal Dumont MD; No Primary Care Physician ~ Signed [facility] Work Phone: 1(976) 334-600405-11-2024 Progress note Author Danilo Parra [facility] March 24, 2024 11:07am Note Date/Time March 24, 2024 10:53 am [facility] Medical Records Department [address] [place] [address] Progress Note - Hospitalist 03/24/24 1050 MR#: [id number] Acct: [id number] Name: JAHAIRA MAHMOOD Rep #:[id number] : 1955 68 From: Danilo simon MD PCP: Care Physician,No Primary Status :ADM IN Location: [place] [address] Subjective Subjective Doing well, no issues overnight Objective Data Objective Data Vital Signs: Vital Signs Temp Pulse Resp BP Pulse Ox O2 Del Method 98.1 F 89 16 132/101 H 98 Room Air 03/24/24 07:46 03/24/24 07:46 03/24/24 07:46 03/24/24 07:46 03/24/24 07:46 03/24/24 07:46 Oxygen Delivery Method Room Air Weight: 278 lb 14.156 oz Body Mass Index (BMI) 44.8 Intake & Output: Intake and Output for Last 24 Hours 03/23/24 03/24/24 03/25/24 03:59 03:59 03:59 Intake Total 3210 / 3210 1400 / 1400 50 / 50 Output Total 2550 / 2550 1775 / 1775 450 / 450 Balance 660 / 660 -375 / -375 -400 / -400 Lab / Micro Data 03/24/24 06:57 03/24/24 06:57 Labs: Laboratory Results - last 24 hr 03/23/24 10:31: POC Glucose 311 H 03/23/24 16:02: POC Glucose 185 H 03/23/24 22:26: POC Glucose 215 H 03/24/24 06:57: WBC 6.8, RBC 4.99, Hgb 13.0, Hct 40.7, MCV 81.6, MCH 26.1 L, MCHC 31.9 L, RDW Std Deviation 44.0 H, RDW Coeff of Crescencio 14.9 H, Plt Count 239, MPV 9.6, Immature Gran % (Auto) 1.000 H, Neut % (Auto) 61.5, Lymph % (Auto) 29.0, Dunn % (Auto) 6.3, Eos % (Auto) 1.6, Baso % (Auto) 0.6, Absolute Neuts (auto) 4.2, Absolute Lymphs (auto) 1.98, Nucleated RBC % 0, Sodium 139, Potassium 3.9, Chloride 112 H, Carbon Dioxide 22.0, Anion Gap 5, BUN 17, Creatinine 1.27, Estim Creat Clear Calc 69.98, Est GFR (MDRD) Af Amer 72, Est GFR (MDRD) Non-Af 60, BUN/Creatinine Ratio 13.4, Glucose 228 H, Calcium 8.1 L 03/24/24 07:52: POC Glucose 224 H Micro: Microbiology 03/21/24 17:26 Blood Culture (Wb) - Anticubital Right Blood Culture - Preliminary No growth in 48 hours. 03/21/24 17:03 Blood Culture (Wb) - Anticubital Right Blood Culture - Preliminary No growth in 48 hours. Physical Exam Narrative General: Alert, oriented x 3, cooperative, no acute distress HEENT: Atraumatic, PERRLA, EOMI, Normocephalic Oral: Moist Mucosa Neck: Supple, No JVD Lungs: Diminished, Normal air movement, No rhonchi, No wheeze, No rales Cardiovascular: Regular rate, Regular Rhythm, Normal S1, Normal S2, No murmurs Abdomen: Soft, Non Tender, Non-Distended, No Hepato-splenomegaly Extremities: No edema, Capillary Refill Less than 3 Seconds Skin: No rashes, No breakdown Musculoskeletal: No Tenderness to Palpation of Joints or Extremities Neurological: No focal neurological deficits, motor strength 5/5 in all extremities, sensation intact Psych/Mental Status: Flat Assessment & Plan Assessment/Plan (1) Encephalopathy: (2) Hyperglycemia: (3) JACQUELYN (acute kidney injury): PLAN: Plan 1. Acute metabolic encephalopathy(resolved)/JACQUELYN/new onset type 2 diabetes with hyperglycemia ? Unclear as to the primary cause of his encephalopathy, though it does appear to have significantly improved if not resolved today ? Leukocytosis has resolved, no clear source of infection ? Ammonia on admission was unremarkable ? Blood sugars little bit better from admission still elevated above 300 will make adjustments to his insulin ? Continue with IV fluids ? PT/OT ? He has not needed the Haldol during admission so far ? Blood cultures are negative x 48 hours ? A1c on admission was 11.7, will add lisinopril as he is also hypertensive and Coreg. Will also cover with Lipitor and have a lipid panel in the morning 2. Essential HTN ? In the setting of his diabetes we will place him on lisinopril and Coreg ? Will check a lipid panel however given that he is a diabetic also started on alow-dose Lipitor and check a lipid panel in the morning DVT: Lovenox Charges/Coding Visit Charges Inpatient E&M: 43030 Subs Hosp L2 03/24/24 1107 <Electronically signed by Danilo Parra MD> Cosigner Signature (if applicable): CC: ~ Signed [facility] Work Phone: 1(615) 149-503505-10-2024 Progress note Author Danilo Parra [facility] March 23, 2024 5:04pm Note Date/Time March 23, 2024 5:04p m [facility] Medical Records Department [address] [facility] [place] [address] Progress Note - Hospitalist 03/23/24 1702 MR#: [id number] Acct: [id number] Name: JAHAIRA MAHMOOD Rep #:[id number] : 1955 68 From: Danilo simon MD PCP: Care Physician,No Primary Status :ADM IN Location: [place] [address] Subjective Subjective Doing well, no issues overnight Objective Data Objective Data Vital Signs: Vital Signs Temp Pulse Resp BP Pulse Ox O2 Del Method 97.3 F L 72 18 113/72 98 Room Air 03/23/24 14:00 03/23/24 14:00 03/23/24 14:00 03/23/24 14:00 03/23/24 14:00 03/23/24 14:15 Oxygen Delivery Method Room Air Weight: 278 lb 14.156 oz Body Mass Index (BMI) 44.8 Intake & Output: Intake and Output for Last 24 Hours 03/22/24 03/23/24 03/24/24 03:59 03:59 03:59 Intake Total 1641 / 1641 3210 / 3210 450 / 450 Output Total 2550 / 2550 800 / 800 Balance 1641 / 1641 660 / 660 -350 / -350 Lab / Micro Data 03/23/24 08:45 03/23/24 08:45 Labs: Laboratory Results - last 24 hr 03/22/24 17:50: POC Glucose 302 H 03/22/24 22:07: POC Glucose 146 H 03/23/24 07:54: POC Glucose 226 H 03/23/24 08:45: WBC 7.4, RBC 5.01, Hgb 13.2, Hct 41.2, MCV 82.2, MCH 26.3 L, MCHC 32.0, RDW Std Deviation 45.0 H, RDW Coeff of Crsecencio 15.0 H, Plt Count 222, MPV9.4, Immature Gran % (Auto) 0.800, Neut % (Auto) 67.5, Lymph % (Auto) 23.5, Dunn% (Auto) 6.5, Eos % (Auto) 1.2, Baso % (Auto) 0.5, Absolute Neuts (auto) 5.0, Absolute Lymphs (auto) 1.73, Nucleated RBC % 0, Sodium 141, Potassium 4.1, Chloride 113 H, Carbon Dioxide 22.0, Anion Gap 6, BUN 22 H, Creatinine 1.40 H, Estim Creat Clear Calc 63.49, Est GFR (MDRD) Af Amer 65, Est GFR (MDRD) Non-Af 53 L, BUN/Creatinine Ratio 15.7, Glucose 268 H, Calcium 8.2 L, Vancomycin Kncfxs49.4 03/23/24 10:31: POC Glucose 311 H 03/23/24 16:02: POC Glucose 185 H Physical Exam Narrative General: Alert, oriented x 3, cooperative, no acute distress HEENT: Atraumatic, PERRLA, EOMI, Normocephalic Oral: Moist Mucosa Neck: Supple, No JVD Lungs: Diminished, Normal air movement, No rhonchi, No wheeze, No rales Cardiovascular: Regular rate, Regular Rhythm, Normal S1, Normal S2, No murmurs Abdomen: Soft, Non Tender, Non-Distended, No Hepato-splenomegaly Extremities: No edema, Capillary Refill Less than 3 Seconds Skin: No rashes, No breakdown Musculoskeletal: No Tenderness to Palpation of Joints or Extremities Neurological: No focal neurological deficits, motor strength 5/5 in all extremities, sensation intact Psych/Mental Status: Flat Assessment & Plan Assessment/Plan (1) Encephalopathy: (2) Hyperglycemia: (3) JACQUELYN (acute kidney injury): PLAN: Plan 1. Acute metabolic encephalopathy/JACQUELYN ? Unclear as to the primary cause of his encephalopathy, though it does appear to have significantly improved if not resolved today ? Leukocytosis has resolved, no clear source of infection ? Ammonia on admission was unremarkable ? Blood sugars little bit better from admission still elevated above 300 will make adjustments to his insulin ? Continue with IV fluids ? PT/OT ? He has not needed the Haldol during admission so far ? Blood cultures are still pending DVT: Lovenox Charges/Coding Visit Charges Inpatient E&M: 43889 Subs Hosp L2 03/23/24 1704 <Electronically signed by Danilo Parra MD> Cosigner Signature (if applicable): CC: ~ Signed [facility] Work Phone: 1([phone]) 835-636805-10-2024 Progress note Author Danilo Parra [facility] March 23, 2024 5:02pm Note Date/Time March 22, 2024 3:47pm [facility] Medical Records Department [address] [place] [address] Progress Note - Hospitalist 03/22/24 1545 MR#: [id number] Acct: [id number] Name: JAHAIRA MAHMOOD Rep #:[id number] : 1955 68 From: Danilo simon MD PCP: Care Physician,No Primary Status :ADM IN Location: [place] [address] Subjective Subjective Does not appear to be a change to his mental status from yesterday Objective Data Objective Data Vital Signs: Vital Signs Temp Pulse Resp BP Pulse Ox O2 Del Method 97.9 F 67 15 146/92 H 98 Room Air 03/22/24 09:35 03/22/24 09:35 03/22/24 09:35 03/22/24 09:35 03/22/24 09:35 03/22/24 09:35 Oxygen Delivery Method Room Air Weight: 278 lb 14.156 oz Body Mass Index (BMI) 44.8 Intake & Output: Intake and Output for Last 24 Hours 03/21/24 03/22/24 03/23/24 03:59 03:59 03:59 Intake Total 1641 / 1641 1890 / 1890 Output Total 1100 / 1100 Balance 1641 / 1641 790 / 790 Lab / Micro Data 03/23/24 08:45 03/23/24 08:45 Labs: Laboratory Results - last 24 hr 03/21/24 12:36: Hemoglobin A1c 11.7 H, Folate 9.30, TSH 1.40 03/21/24 13:20: Vitamin B12 625 03/21/24 17:07: POC Glucose 442 H 03/21/24 19:15: POC Glucose 348 H 03/21/24 19:25: Troponin I High Sens 38 03/21/24 21:32: POC Glucose 371 H 03/21/24 21:33: Troponin I High Sens 38 03/22/24 02:14: WBC 13.4 H, RBC 5.42, Hgb 14.2, Hct 43.6, MCV 80.4, MCH 26.2 L, MCHC 32.6, RDW Std Deviation 43.6, RDW Coeff of Crescencio 15.1 H, Plt Count 243, MPV 9.1, Immature Gran % (Auto) 0.700, Neut % (Auto) 61.7, Lymph % (Auto) 27.7, Dunn% (Auto) 9.3, Eos % (Auto) 0.2, Baso % (Auto) 0.4, Absolute Neuts (auto) 8.3 H, Absolute Lymphs (auto) 3.72, Nucleated RBC % 0, Sodium 141, Potassium 4.0, Chloride 113 H, Carbon Dioxide 25.0, Anion Gap 3 L, BUN 28 H, Creatinine 1.46 H,Estim Creat Clear Calc 60.88, Est GFR (MDRD) Af Amer 62, Est GFR (MDRD) Non-Af 51 L, BUN/Creatinine Ratio 19.2, Glucose 325 H, Calcium 8.2 L, Total Bilirubin 0.40, AST 8 L, ALT 15 L, Alkaline Phosphatase 138 H, Troponin I High Sens 48, Total Protein 6.9, Albumin 2.8 L, Globulin 4.1, Albumin/Globulin Ratio 0.7 L 03/22/24 05:53: POC Glucose 315 H 03/22/24 12:46: POC Glucose 361 H Radiography Diagnostic Testing: Radiology Impression Echocardiogram 03/21/24 17:59 Interpretation Summary Moderate to severe LV concentric hypertrophy. LV systolic ejection fraction estimated at 50 to 55%. Stage 1 diastolic dysfunction. The study was technically difficult with suboptimal images. Ordering Physician: Shantal Dumont Referring Physician: NO PCP Performed By: Sharon Junior RCS Physical Exam Narrative General: Agitated and confused HEENT: Atraumatic, PERRLA, EOMI, Normocephalic Oral: Moist Mucosa Neck: Supple, No JVD Lungs: Diminished, Normal air movement, No rhonchi, No wheeze, No rales Cardiovascular: Regular rate, Regular Rhythm, Normal S1, Normal S2, No murmurs Abdomen: Soft, Non Tender, Non-Distended, No Hepato-splenomegaly Extremities: No edema, Capillary Refill Less than 3 Seconds Skin: No rashes, No breakdown Musculoskeletal: No Tenderness to Palpation of Joints or Extremities Neurological: Does not follow commands, moves his extremities Psych/Mental Status: Flat agitated Assessment & Plan Assessment/Plan (1) Encephalopathy: (2) Hyperglycemia: (3) JACQUELYN (acute kidney injury): PLAN: Plan 1. Acute metabolic encephalopathy/JACQUELYN ? Unclear as to the primary cause of his encephalopathy ? Continues to have a leukocytosis but creatinine is a little bit improved from admission ? Ammonia on admission was unremarkable ? Blood sugars little bit better from admission still elevated above 300 will make adjustments to his insulin ? Continue with IV fluids ? PT/OT ? He has not needed the Haldol during admission so far ? Blood cultures are pending DVT: Lovenox Charges/Coding Visit Charges Inpatient E&M: 53368 Subs Hosp L2 03/23/24 1702 <Electronically signed by Danilo Parra MD> Cosigner Signature (if applicable): CC: ~ Signed [facility] Work Phone: 1(572) 632-295905-10-2024 Consult note Author Danilo Parra [facility] March 23, 2024 12:57pm Note Date/Time March 23, 2024 10:14 am [facility] Medical Records Department [address] [place] [address] [place] [address] Pharmacokinetic/Renal -Consult 03/23/24 1014 MR#: [id number] Acct: [id number] Name: JAHAIRA MAHMOOD Rep #:[id number] : 1955 68 From: Jad Duran PCP: Care Physician,No Primary Status :ADM IN Location: [place] [address] Consult Antibiotic Management Pharmacy has been consulted to manage selected antibiotic: Vancomycin Type of Intervention Type of Consult: Follow-up Prior Doses of Antibiotics Prior Doses of Antibiotics Received/Current Regimen: Presently on 750mg iv q12h. Labs Labs: Sodium 141 mmol/L (136-145) 03/23/24 08:45 Potassium 4.1 mmol/L (3.5-5.1) 03/23/24 08:45 Chloride 113 mmol/L (98-107) H 03/23/24 08:45 Carbon Dioxide 22.0 mmol/L (21.0-32.0) 03/23/24 08:45 Anion Gap 6 (5-15) 03/23/24 08:45 BUN 22 mg/dL (7-18) H 03/23/24 08:45 Creatinine 1.40 mg/dL (0.70-1.30) H 03/23/24 08:45 Est GFR (MDRD) Af Amer 65 mL/min (>60) 03/23/24 08:45 Est GFR (MDRD) Non-Af 53 mL/min (>60) L 03/23/24 08:45 BUN/Creatinine Ratio 15.7 RATIO (10-20) 03/23/24 08:45 Glucose 268 mg/dL (74-106) H 03/23/24 08:45 Vancomycin Trough 12.4 ug/mL (5.0-15.0) 03/23/24 08:45 Dosing Weight Weight used for dosin kg Estimated Creatinine Clearance Estimated Creatinine Clearance: 64 ml/min Goal Trough Goal Trough: 15-20 mcg/mL Pharmacy Plan for Drug Dosing Pharmacy Plan for Drug Dosing: Trough today 12.4 and below desired range of 15-20mcg/ml. Recommend increase to 1000mg iv q12h with trough before 4th dose. Pharmacy Service will continue to monitor and adjust dosing as required. Follow-Up Labs Follow-Up Labs: Trough: Vancomycin (24 2130) 03/23/24 1017 <Electronically signed by Jad Duran> Date _ Jad Duran 03/23/24 1257 <Electronically signed by Danilo rosales MD> Cosigner Signature (if applicable): Date Danilo Parra MD CC: ~ Signed [facility] Work Phone: 1(679) 162-809405-08-2024 History and physical note Author [facility] March 21, 2024 7:11pm Note Date/Time March 21, 2024 4:12pm [facility] Medical Records Department [address] [place] [address] History & Physical Exam 03/21/24 1604 MR#: [id number] Acct: [id number] Name: JAHAIRA MAHMOOD Rep #:[id number] : 1955 68 From: Shantal Dumont MD PCP: Care Physician,No Primary Status :ADM IN Location: [place] [address] HPI - General General Date of Admission: 03/21/24 Date of Service: 03/21/24 Chief Complaint: Altered mental status HPI Narrative JAHAIRA MAHMOOD, is a 68 M with no known past medical history was admitted to the ED on 03/16/2024 for altered mental status. Patient had apparently not been himself and could not give much of a history. He was found in his own feces andurine. EMS was called but it is not clear exactly who called the EMS. EMS brought him to the hospital he could not give much of a history. Unable to do review of systems as patient is confused and had received Geodon in the ED on account of physical aggression and combativeness. Vitals at time of review a blood pressure of 169/129, pulse rate of 112 range. Rate of 22. Oxygen saturation was 95% on room air. CBC showed WBC of 12, hemoglobin of 15.4 and platelets of 264. INR was 1.1. Chemistry shows sodium of 133 with creatinine of 1.84, with no baseline creatinine in the EMR. Blood glucose was 603 and ammonia level was 24. Bicarb was 22 and anion gap is 9. Total CPK was 123 and initial troponin was 29. Urinalysis showed glucose of 5000 with protein of 30 as well as ketones of 5. There is no evidence of urine leukocyte esterase or urine WBC or urine bacteria. Urine tox was negative and serum acetone level was also negative. CT of the brain showed chronic involutional changes and CT of the cervical spine showed multilevel degenerativechanges as above. Chest x-ray showed no acute cardiopulmonary process and showed moderate cardiomegaly. He has been admitted to be managed for acute encephalopathy in the setting of elevated blood sugar likely due to undiagnosed diabetes mellitus. [facility] Home Medications hydrocodone-acetaminophen 5-325mg 5mg-325mg 1 - 2 tab PO Q4H PRN PRN Pain ##20 06/23/14 [Rx Last Taken Unknown] prednisone 20 mg tablet 40 mg (2 x 20 mg) PO DAILY ##14 06/23/14 [Rx Last Taken Unknown] colchicine 0.6 mg capsule 0.6 mg PO X1 ##10 07/04/14 [Rx Last Taken Unknown] hydrocodone-acetaminophen 5-325mg 5mg-325mg 1 - 2 tab PO Q4H PRN PRN Pain ##20 07/04/14 [Rx Last Taken Unknown] indomethacin 25 mg capsule 25 mg PO TIDCM ##15 07/04/14 [Rx Last Taken Unknown] Allergy/AdvReac Type Severity Reaction Status Date / Time No Known Allergies Allergy Verified 03/21/24 12:32 Social History Smoking Status: Current some day smoker tobacco type: cigarettes ROS Review of Systems ROS Unobtainable: due to encephalopathy Constitutional Constitutional: Reports anorexia and chills Vital Signs Vital Signs Vital Signs: 03/21/24 12:31 03/21/24 13:42 03/21/24 13:30 Temperature 98.9 F Temperature Source Temporal Pulse Rate 113 H 124 H Respiratory Rate 20 H 21 H Blood Pressure 155/121 H 188/110 H Blood Pressure Mean 132 136 Pulse Ox 95 95 95 Oxygen Delivery Method Room Air Room Air 03/21/24 14:00 03/21/24 15:00 Temperature Temperature Source Pulse Rate 117 H 112 H Respiratory Rate 24 H 22 H Blood Pressure 187/124 H 169/129 H Blood Pressure Mean 145 142 Pulse Ox 95 95 Oxygen Delivery Method Room Air Room Air Weight Weight: 278 lb 14.156 oz Body Mass Index (BMI) 44.8 Physical Exam Const Constitutional Narrative: combative, very disheveled with poor hygiene Orientation / Consciousness: confused HEENT normocephalic Mouth: dry mucous membranes Eyes EOMs intact bilaterally Neck no lymphadenopathy and supple Lymph Lymphatic: no lymphadenopathy noted and no lymphedema noted Resp normal respiratory effort, normal air movement and clear to auscultation bilaterally Cardio regular rhythm, S1 normal heart sound and S2 normal heart sound Cardio Narrative: tachycardic GI normal to inspection, nondistended, normoactive bowel sounds, soft to palpation,non-tender and non-distended Extremity normal capillary refill, no clubbing, cyanosis or edema and no calf tenderness General Extremity: no tenderness to palpation of joints or extremities Skin General Skin Exam: no breakdown Neuro Neuro Narrative: confused, moves all extremities, pupils equal and reactive to light. Psych Psych Narrative: confused, agitated Results Lab / Micro Data 03/21/24 12:36 03/21/24 12:36 Labs: Laboratory Results - last 24 hr 03/21/24 12:36: WBC 12.0 H, RBC 5.95, Hgb 15.4, Hct 47.2, MCV 79.3 L, MCH 25.9 L, MCHC 32.6, RDW Std Deviation 40.6, RDW Coeff of Crescencio 14.4, Plt Count 264, MPV 9.3, Immature Gran % (Auto) 1.000 H, Neut % (Auto) 76.6 H, Lymph % (Auto) 15.4 L, Dunn % (Auto) 6.3, Eos % (Auto) 0.2, Baso % (Auto) 0.5, Absolute Neuts (auto) 9.2 H, Absolute Lymphs (auto) 1.86, Nucleated RBC % 0, PT 13.9, INR 1.1, APTT 25.1, Sodium 133 L, Potassium 4.3, Chloride 102, Carbon Dioxide 22.0, Anion Gap 9, BUN 35 H, Creatinine 1.84 H, Estim Creat Clear Calc 48.30, Est GFR (MDRD) Af Amer 47 L, Est GFR (MDRD) Non-Af 39 L, BUN/Creatinine Ratio 19.0, Glucose 603 H*, Calcium 9.4, Total Creatine Kinase 123, Troponin I High Sens 29 03/21/24 13:20: Ammonia 24.0, Urine Color Yellow, Urine Clarity Clear, Urine pH 6.0, Ur Specific [place] 1.010, Urine Protein 30 H, Urine Glucose (UA) 1000 H, Urine Ketones 5 H, Urine Occult Blood 50 H, Urine Nitrite Negative, Urine Bilirubin Negative, Urine Urobilinogen Normal, Ur Leukocyte Esterase Negative, Urine RBC 0-5 SEEN, Urine WBC 0 SEEN, Ur Squamous Epith Cells 0 SEEN, Urine Bacteria 0 SEEN, Urine Mucus 0 SEEN, Urine Opiates Screen NEGATIVE, Urine MethadoneScreen NEGATIVE, Ur Barbiturates Screen NEGATIVE, Ur Phencyclidine Scrn NEGATIVE, Ur Amphetamines Screen NEGATIVE, MDMA (Ecstasy) Screen NEGATIVE, U Benzodiazepines Scrn NEGATIVE, Urine Cocaine Screen NEGATIVE, U Cannabinoids Screen NEGATIVE, Ur Drug Screen Comment , Ethyl Alcohol < 3.0, Acetone Level NEGATIVE Imaging Radiology Impression Brain CT 03/21/24 12:54 IMPRESSION: Chronic involutional changes of the brain. Electronically Signed: Isrrael Garcia MD at 13:39 EDT , Cervical Spine CT 03/21/24 12:54 IMPRESSION: Multilevel degenerative changes, as described above. Electronically Signed: Isrrael Garcia MD at 13:45 EDT , Chest X-Ray 03/21/24 14:45 IMPRESSION: Moderate cardiomegaly. Electronically Signed: Isrrael Garcia MD at 15:11 EDT , Assessment & Plan Assessment/Plan (1) Encephalopathy: (2) Hyperglycemia: (3) JACQUELYN (acute kidney injury): PLAN: Plan #Acute metabolic encephalopathy * Possible etiologies include hyperglycemia and probable undiagnosed diabetes melitis. * Was found covered in feces and urine. Very confused and agitated. Unable to give a history. Urine tox negative and serum alcohol level is not elevated. * Blood sugar is elevated at 603 and patient also has JACQUELYN with creatinine of 1.84. Patient has no known medical history whatsoever and ER doctor checked clinic saying that there were no records in there. * Admit to PCU. Hydrate aggressively with IV fluid normal saline at 150 cc/h * Blood glucose is 603. Will give subcu insulin 20 units x 1 and recheck blood sugar in an hour. He has no anion gap currently so we will hold off on insulin drip. * Check A1c. Get blood cultures. Once blood sugars trend down we will start on Lantus 10 units daily. Once kidney function improves can be started on metformin as well. * PT OT consult. Fall precautions. Of note ammonia level is also not elevated. * Patient received Geodon in the ED. Haldol as needed and will order Seroquel for if he continues to be agitated. * Will get neurology consult if confusion persists. Check vitamin B12 and folic acid. Also give IV thiamine x 1 just in case he has a history of alcohol use disorder. * #Hyperglycemia in newly diagnosed diabetes mellitus: Management as above #JACQUELYN: Creatinine is 1.86. No known baseline. Hydrate with fluids and trend. If creatinine does not improve will get further workup with renal ultrasound andurine electrolytes #DVT prophylaxis: Lovenox, renally dosed * Charges/Coding Visit Charges Inpatient E&M: 01730 Init Hosp L3 03/21/24 1852 <Electronically signed by Shantal Dumont MD> Cosigner Signature (if applicable): CC: Dr. Shantal Dumont MD; No Primary Care Physician~ Signed ADDENDUM by Dr. Shantal Dumont MD on 03/21/24 at 1911 Addendum Patient's blood pressure was elevated, in the 170s-170s systolic. Not a known hypertensive. Will start on PO amlodipine 10mg daily. IV hydralazine prn. Wbc slightly elevated at 12. However he has no fever or chills. He was tachypneic and tachcyardic, b CXR showed no evidence of pneumonia. He is on roomair also. Due to his inability to give a history, elevated wbc, tachcyardia and tachypnea, will cover with broad spectrum antibiotics for now pending blood cultures. Urinalysis showed no evidence of UTI. 03/21/241910<Electronically signed by Shantal Dumont MD> Cosigner Signature (if applicable): cc: Dr. Shantal Dumont MD; No Primary Care Physician ~* Signed [facility] Work Phone: 1(635) 128-257705-08-2024 Discharge summary Author Ho Matt [facility] March 21, 2024 4:41pm Note Date/Time March 21, 2024 1:03pm [facility] Medical Records Department [address] [place] [address] Emergency Department Summary 03/21/24 MR#: [id number] Acct: [id number] Name: JAHAIRA MAHMOOD Rep #:[id number] : 1955 68 From: Ho Gutierrez DO PCP: Care Physician,No Primary Status :REG ER Location: ED HPI History of Present Illness Chief Complaint: Alt LOC Narrative Narrative: 68-year-old male arriving by EMS. Apparently he has not been himself. He is not talking to me but he will wake up and tell me to shut up. He did ask me what are you doing here. He will not answer any questions otherwise. He was found in his own feces and urine. Nobody is aware who called EMS. Patient reportedly has a girlfriend but she is not with him. PFSH PFSH Home Medications hydrocodone-acetaminophen 5-325mg 5mg-325mg 1 - 2 tab PO Q4H PRN PRN Pain ##20 06/23/14 [Rx Last Taken Unknown] prednisone 20 mg tablet 40 mg (2 x 20 mg) PO DAILY ##14 06/23/14 [Rx Last Taken Unknown] colchicine 0.6 mg capsule 0.6 mg PO X1 ##10 07/04/14 [Rx Last Taken Unknown] hydrocodone-acetaminophen 5-325mg 5mg-325mg 1 - 2 tab PO Q4H PRN PRN Pain ##20 08/21/14 [Rx Last Taken Unknown] indomethacin 25 mg capsule 25 mg PO TIDCM ##15 07/04/14 [Rx Last Taken Unknown] Allergy/AdvReac Type Severity Reaction Status Date / Time No Known Allergies Allergy Verified 03/21/24 12:32 Social History Smoking Status: Current some day smoker tobacco type: cigarettes ROS ROS ED Review of Systems ROS Unobtainable: due to mental condition and due to mental status EXAM Physical Exam Const Vital Signs: 03/21/24 12:31 03/21/24 13:42 03/21/24 13:30 Temperature 98.9 F Temperature Source Temporal Pulse Rate 113 H 124 H Respiratory Rate 20 H 21 H Blood Pressure 155/121 H 188/110 H Blood Pressure Mean 132 136 Pulse Ox 95 95 95 Oxygen Delivery Method Room Air Room Air 03/21/24 14:00 03/21/24 15:00 03/21/24 16:00 Temperature Temperature Source Pulse Rate 117 H 112 H 115 H Respiratory Rate 24 H 22 H 24 H Blood Pressure 187/124 H 169/129 H Blood Pressure Mean 145 142 Pulse Ox 95 95 92 Oxygen Delivery Method Room Air Room Air Room Air Positive obese and unkempt General Appearance ED: unkempt Nutritional Appearance: obese HEENT Reports TM's clear and dry mucous membranes Negative for trauma Tympanic Membrane ED: Yes TM's clear Mouth ED: Yes dry mucous membranes Mouth: dry mucous membranes Eyes PERRL and EOMs intact bilaterally Chest Wall inspection of chest normal and palpation of chest normal Resp normal respiratory effort and clear to auscultation bilaterally Auscultation: Negative for rales or rhonchi Cardio regular rate and regular rhythm GI normal to inspection, nondistended, normoactive bowel sounds Extremity normal to inspection General Extremety ED: Negative for edema General Extremity: Negative for edema Neuro CN's II-XII intact bilaterally Sensorium / Orientation: alert and orientation impaired Psych Appearance: unkempt Attitude: agitated Skin no rashes or lesions noted and no wounds MDM MDM MDM Narrative Medical decision making narrative: After initial evaluation the patient being agitated and started trying to hit the nurses and staff. I do believe he needs a workup so we will give him Geodonto calm down. He may need restraints. Differential includes intracranial hemorrhage, C- spine fracture, hyperammonemia, UTI, pneumonia, hyperglycemia, hypoglycemia, dehydration, anemia, electrolyte abnormalities, rhabdomyolysis, ACS, pneumonia UTI. CBC was obtained to assess white blood cell count, hemoglobin, platelets. CBC was obtained to assess white blood cell count, hemoglobin, platelets. BMP to assess renal function, electrolytes, glucose. CPK to assess for rhabdomyolysis. Liver enzymes to assess for transaminitis. High-sensitivity troponin and EKG to assess for ischemia/dysrhythmia. Urinalysis to assess for UTI. EtOH to assess for alcohol use drug abuse screen and assess for drug use. Acetone level to assess for DKA. Patient did go with Geodon did not have to be restrained. CBC showed 12.0 white count. Hemoglobin stable 13.4. Platelets are normal at 264. PT/INR normal. Creatinine 1.84 and there is no comparison labs that I can find. Glucose is 603 without anion gap. Serum acetone negative. Electrolytes essentially unremarkable. Ammonia level 24. EtOH negative, drug screen negative, urinalysis negative for infection CPK was within normal limits. High-sensitivity troponin was 29. Chest x-ray my interpretation showed no acute process. CT brain and cervical spine were negative for acute findings. I did speak with his sister who stated she had notspoken to him in months but did state there was somebody that sleeps on his couch and is a female named Kamryn that she believes. She was unable to provide me with any baseline mentation. She was going to try to get a hold of Kamryn butI have not heard back from her. Patient was given IV fluids and 20 units of insulin. Discussed with the hospitalist for admission. Impression: 1. delirium 2. Hyperglycemia 3. Renal failure Lab Data Labs: Laboratory Results - last 24 hr 03/21/24 03/21/24 12:36 13:20 WBC 12.0 H RBC 5.95 Hgb 15.4 Hct 47.2 MCV 79.3 L MCH 25.9 L MCHC 32.6 RDW Std Deviation 40.6 RDW Coeff of Crescencio 14.4 Plt Count 264 MPV 9.3 Immature Gran % (Auto) 1.000 H Neut % (Auto) 76.6 H Lymph % (Auto) 15.4 L Dunn % (Auto) 6.3 Eos % (Auto) 0.2 Baso % (Auto) 0.5 Absolute Neuts (auto) 9.2 H Absolute Lymphs (auto) 1.86 Nucleated RBC % 0 PT 13.9 INR 1.1 APTT 25.1 Sodium 133 L Potassium 4.3 Chloride 102 Carbon Dioxide 22.0 Anion Gap 9 BUN 35 H Creatinine 1.84 H Estim Creat Clear Calc 48.30 Est GFR (MDRD) Af Amer 47 L Est GFR (MDRD) Non-Af 39 L BUN/Creatinine Ratio 19.0 Glucose 603 H* Calcium 9.4 Ammonia 24.0 Total Creatine Kinase 123 Troponin I High Sens 29 Urine Color Yellow Urine Clarity Clear Urine pH 6.0 Ur Specific [place] 1.010 Urine Protein 30 H Urine Glucose (UA) 1000 H Urine Ketones 5 H Urine Occult Blood 50 H Urine Nitrite Negative Urine Bilirubin Negative Urine Urobilinogen Normal Ur Leukocyte Esterase Negative Urine RBC 0-5 SEEN Urine WBC 0 SEEN Ur Squamous Epith Cells 0 SEEN Urine Bacteria 0 SEEN Urine Mucus 0 SEEN Urine Opiates Screen NEGATIVE Urine Methadone Screen NEGATIVE Ur Barbiturates Screen NEGATIVE Ur Phencyclidine Scrn NEGATIVE Ur Amphetamines Screen NEGATIVE MDMA (Ecstasy) Screen NEGATIVE U Benzodiazepines Scrn NEGATIVE Urine Cocaine Screen NEGATIVE U Cannabinoids Screen NEGATIVE Ur Drug Screen Comment Ethyl Alcohol < 3.0 Acetone Level NEGATIVE Radiography Diagnostic Testing: Clinical Impression(s) from Imaging Studies Brain CT 03/21/24 12:54 IMPRESSION: Chronic involutional changes of the brain. Electronically Signed: Israrel Garcia MD at 13:39 EDT , Cervical Spine CT 03/21/24 12:54 IMPRESSION: Multilevel degenerative changes, as described above. Electronically Signed: Isrrael Garcia MD at 13:45 EDT , Chest X-Ray 03/21/24 14:45 IMPRESSION: Moderate cardiomegaly. Electronically Signed: Isrrael Garcia MD at 15:11 EDT , Discharge Plan Triage Chief Complaint: Alt LOC ED Provider: Ho Gutierrez Dx/Rx/DC Orders Prescriptions: No Action hydrocodone-acetaminophen 1 TABLET tablet 1 - 2 tab PO Q4H PRN PRN (Reason: Pain) Qty: 20 0RF prednisone 20 MG tablet 40 mg PO DAILY Qty: 14 0RF Rx Instructions: 1po bid for 7 days hydrocodone-acetaminophen 1 TABLET tablet 1 - 2 tab PO Q4H PRN PRN (Reason: Pain) Qty: 20 0RF colchicine 0.6 MG tablet 0.6 mg PO X1 Qty: 10 0RF indomethacin 25 MG capsule 25 mg PO TIDCM Qty: 15 0RF Primary Care Provider: Care Physician,No Primary Referrals: Care Physician,No Primary [Primary Care Provider] - What to do if you have Problems For any increased pain, shortness of breath, bleeding, nausea or vomiting, chestpain, or any unexpected problems, contact your Primary Care Provider. Call [facility] ([phone]) or report to the closest Emergency Room. Call 911 if necessary. 03/21/24 1641 <Electronically signed by Ho Gutierrez DO> Cosigner Signature (if applicable): CC: No Primary Care Physician ~ Signed [facility] Work Phone: 1(772) 313-600805-08-2024 Discharge summary Author Ho Gutierrez [facility] March 21, 2024 4:41pm Note Date/Time March 21, 2024 1:03pm [facility] Medical Records Department [address] [place] [address] Emergency Department Summary 03/21/24 MR#: [id number] Acct: [id number] Name: JAHAIRA MAHMOOD Rep #:[id number] : 1955 68 From: Ho Gutierrez DO PCP: Care Physician,No Primary Status :REG ER Location: ED HPI History of Present Illness Chief Complaint: Alt LOC Narrative Narrative: 68-year-old male arriving by EMS. Apparently he has not been himself. He is not talking to me but he will wake up and tell me to shut up. He did ask me what are you doing here. He will not answer any questions otherwise. He was found in his own feces and urine. Nobody is aware who called EMS. Patient reportedly has a girlfriend but she is not with him. PFSH PFSH Home Medications hydrocodone-acetaminophen 5-325mg 5mg-325mg 1 - 2 tab PO Q4H PRN PRN Pain ##20 06/23/14 [Rx Last Taken Unknown] prednisone 20 mg tablet 40 mg (2 x 20 mg) PO DAILY ##14 06/23/14 [Rx Last Taken Unknown] colchicine 0.6 mg capsule 0.6 mg PO X1 ##10 07/04/14 [Rx Last Taken Unknown] hydrocodone-acetaminophen 5-325mg 5mg-325mg 1 - 2 tab PO Q4H PRN PRN Pain ##20 07/04/14 [Rx Last Taken Unknown] indomethacin 25 mg capsule 25 mg PO TIDCM ##15 07/04/14 [Rx Last Taken Unknown] Allergy/AdvReac Type Severity Reaction Status Date / Time No Known Allergies Allergy Verified 03/21/24 12:32 Social History Smoking Status: Current some day smoker tobacco type: cigarettes ROS ROS ED Review of Systems ROS Unobtainable: due to mental condition and due to mental status EXAM Physical Exam Const Vital Signs: 03/21/24 12:31 03/21/24 13:42 03/21/24 13:30 Temperature 98.9 F Temperature Source Temporal Pulse Rate 113 H 124 H Respiratory Rate 20 H 21 H Blood Pressure 155/121 H 188/110 H Blood Pressure Mean 132 136 Pulse Ox 95 95 95 Oxygen Delivery Method Room Air Room Air 03/21/24 14:00 03/21/24 15:00 03/21/24 16:00 Temperature Temperature Source Pulse Rate 117 H 112 H 115 H Respiratory Rate 24 H 22 H 24 H Blood Pressure 187/124 H 169/129 H Blood Pressure Mean 145 142 Pulse Ox 95 95 92 Oxygen Delivery Method Room Air Room Air Room Air Positive obese and unkempt General Appearance ED: unkempt Nutritional Appearance: obese HEENT Reports TM's clear and dry mucous membranes Negative for trauma Tympanic Membrane ED: Yes TM's clear Mouth ED: Yes dry mucous membranes Mouth: dry mucous membranes Eyes PERRL and EOMs intact bilaterally Chest Wall inspection of chest normal and palpation of chest normal Resp normal respiratory effort and clear to auscultation bilaterally Auscultation: Negative for rales or rhonchi Cardio regular rate and regular rhythm GI normal to inspection, nondistended, normoactive bowel sounds Extremity normal to inspection General Extremety ED: Negative for edema General Extremity: Negative for edema Neuro CN's II-XII intact bilaterally Sensorium / Orientation: alert and orientation impaired Psych Appearance: unkempt Attitude: agitated Skin no rashes or lesions noted and no wounds MDM MDM MDM Narrative Medical decision making narrative: After initial evaluation the patient being agitated and started trying to hit the nurses and staff. I do believe he needs a workup so we will give him Leathato calm down. He may need restraints. Differential includes intracranial hemorrhage, C- spine fracture, hyperammonemia, UTI, pneumonia, hyperglycemia, hypoglycemia, dehydration, anemia, electrolyte abnormalities, rhabdomyolysis, ACS, pneumonia UTI. CBC was obtained to assess white blood cell count, hemoglobin, platelets. CBC was obtained to assess white blood cell count, hemoglobin, platelets. BMP to assess renal function, electrolytes, glucose. CPK to assess for rhabdomyolysis. Liver enzymes to assess for transaminitis. High-sensitivity troponin and EKG to assess for ischemia/dysrhythmia. Urinalysis to assess for UTI. EtOH to assess for alcohol use drug abuse screen and assess for drug use. Acetone level to assess for DKA. Patient did go with Geodon did not have to be restrained. CBC showed 12.0 white count. Hemoglobin stable 13.4. Platelets are normal at 264. PT/INR normal. Creatinine 1.84 and there is no comparison labs that I can find. Glucose is 603 without anion gap. Serum acetone negative. Electrolytes essentially unremarkable. Ammonia level 24. EtOH negative, drug screen negative, urinalysis negative for infection CPK was within normal limits. High-sensitivity troponin was 29. Chest x-ray my interpretation showed no acute process. CT brain and cervical spine were negative for acute findings. I did speak with his sister who stated she had notspoken to him in months but did state there was somebody that sleeps on his couch and is a female named Kamryn that she believes. She was unable to provide me with any baseline mentation. She was going to try to get a hold of Kamryn butI have not heard back from her. Patient was given IV fluids and 20 units of insulin. Discussed with the hospitalist for admission. Impression: 1. delirium 2. Hyperglycemia 3. Renal failure Lab Data Labs: Laboratory Results - last 24 hr 03/21/24 03/21/24 12:36 13:20 WBC 12.0 H RBC 5.95 Hgb 15.4 Hct 47.2 MCV 79.3 L MCH 25.9 L MCHC 32.6 RDW Std Deviation 40.6 RDW Coeff of Crescencio 14.4 Plt Count 264 MPV 9.3 Immature Gran % (Auto) 1.000 H Neut % (Auto) 76.6 H Lymph % (Auto) 15.4 L Dunn % (Auto) 6.3 Eos % (Auto) 0.2 Baso % (Auto) 0.5 Absolute Neuts (auto) 9.2 H Absolute Lymphs (auto) 1.86 Nucleated RBC % 0 PT 13.9 INR 1.1 APTT 25.1 Sodium 133 L Potassium 4.3 Chloride 102 Carbon Dioxide 22.0 Anion Gap 9 BUN 35 H Creatinine 1.84 H Estim Creat Clear Calc 48.30 Est GFR (MDRD) Af Amer 47 L Est GFR (MDRD) Non-Af 39 L BUN/Creatinine Ratio 19.0 Glucose 603 H* Calcium 9.4 Ammonia 24.0 Total Creatine Kinase 123 Troponin I High Sens 29 Urine Color Yellow Urine Clarity Clear Urine pH 6.0 Ur Specific [place] 1.010 Urine Protein 30 H Urine Glucose (UA) 1000 H Urine Ketones 5 H Urine Occult Blood 50 H Urine Nitrite Negative Urine Bilirubin Negative Urine Urobilinogen Normal Ur Leukocyte Esterase Negative Urine RBC 0-5 SEEN Urine WBC 0 SEEN Ur Squamous Epith Cells 0 SEEN Urine Bacteria 0 SEEN Urine Mucus 0 SEEN Urine Opiates Screen NEGATIVE Urine Methadone Screen NEGATIVE Ur Barbiturates Screen NEGATIVE Ur Phencyclidine Scrn NEGATIVE Ur Amphetamines Screen NEGATIVE MDMA (Ecstasy) Screen NEGATIVE U Benzodiazepines Scrn NEGATIVE Urine Cocaine Screen NEGATIVE U Cannabinoids Screen NEGATIVE Ur Drug Screen Comment Ethyl Alcohol < 3.0 Acetone Level NEGATIVE Radiography Diagnostic Testing: Clinical Impression(s) from Imaging Studies Brain CT 03/21/24 12:54 IMPRESSION: Chronic involutional changes of the brain. Electronically Signed: Isrrael Garcia MD at 13:39 EDT , Cervical Spine CT 03/21/24 12:54 IMPRESSION: Multilevel degenerative changes, as described above. Electronically Signed: Isrrael Garcia MD at 13:45 EDT , Chest X-Ray 03/21/24 14:45 IMPRESSION: Moderate cardiomegaly. Electronically Signed: Isrrael Garcia MD at 15:11 EDT , Discharge Plan Triage Chief Complaint: Alt LOC ED Provider: Ho Gutierrez Dx/Rx/DC Orders Prescriptions: No Action hydrocodone-acetaminophen 1 TABLET tablet 1 - 2 tab PO Q4H PRN PRN (Reason: Pain) Qty: 20 0RF prednisone 20 MG tablet 40 mg PO DAILY Qty: 14 0RF Rx Instructions: 1po bid for 7 days hydrocodone-acetaminophen 1 TABLET tablet 1 - 2 tab PO Q4H PRN PRN (Reason: Pain) Qty: 20 0RF colchicine 0.6 MG tablet 0.6 mg PO X1 Qty: 10 0RF indomethacin 25 MG capsule 25 mg PO TIDCM Qty: 15 0RF Primary Care Provider: Care Physician,No Primary Referrals: Care Physician,No Primary [Primary Care Provider] - What to do if you have Problems For any increased pain, shortness of breath, bleeding, nausea or vomiting, chestpain, or any unexpected problems, contact your Primary Care Provider. Call [facility] ([phone]) or report to the closest Emergency Room. Call 911 if necessary. 03/21/24 1641 <Electronically signed by Ho Gutierrez DO> Cosigner Signature (if applicable): CC: No Primary Care Physician ~ Signed [facility] Work Phone: Evaluation + Plan note No data available for this section [facility] Evaluation note* Diagnosis Onset Date Resolution Status JACQUELYN (acute kidney injury) [place] Encephalopathy acute Hyperglycemia acute [facility] Work Phone: Hospital Discharge instructions No data available for this section [facility] Progress note No data available for this section [facility] Summary Purpose Family History No Family History Records Found Advance Directives No Advanced Directives Records Found Advance Directive Response Recorded Date/ Time Living Will No March 21, 2024 12 :31pm Power of Unload Associate No March 21, 2024 12:31pm Chief Complaint and Reason for Visit Chief Complaint ACUTE ENCEPHALOPATHY , HYPERGLYCEMIA Reason for Visit JACQUELYN (acute kidney in [place]) Encephalopathy Hyperglycemia Chief Complaint ACUTE ENCEPHALOPATHY , HYPERGLYCEMIA ACUTE ENCEPHALOPATHY, HYPERGLYCEMIA ACUTE ENCEPHALOPATHY, HYPERGLYCEMIA ACUTE ENCEPHALOPATHY, HYPERGLYCEMIA ACUTE ENCEPHALOPATHY, HYPERGLYCEMIA Reason for Visit JACQUELYN (acute kidney in [place]) Encephalopathy Hyperglycemia Additional Source Comments Patient Care team informatio n (unrecognized section and content) Team Status: Active Member Role Status Dates No Primary Care Physician Family Provider Active No Primary Care Physician Primary Care Provider Active Team Status: Active Member Role Status Dates No Primary Care Physician Primary Care Provider Active Dr. Ho Gutierrez DO Emergency Provider Active Dr. Shantal Dumont MD Admit Provider, Attending Prov ider Active Team Status: Active Member Role Status Dates No Primary Care Physician Primary Care Provider Active Dr. Elis Tracey MD Attending Provider Active Team Status: Active Member Role Status Dates No Primary Care Physician Primary Care Provider Active Dr. Ho Gutierrez DO Emergency Provider Active Dr. Shantal Dumont MD Admit Provider, Other Provider Active Dr. Danilo Parra MD Attending Provider, Other Provider Active Team Status: Inactive Member Role Status Dates No Primary Care Physician Primary Care Provider Active Dr. Ho Gutierrez DO Emergency Provider Active Dr. Shantal Dumont MD Admit Provider, Other Provider Active Dr. Danilo Parra MD Attending Provider Active (unrecognized sect ion and content) No Status Records FoundNo Status Records FoundNo Status Records Found INFORMATION SOURCE (unrecogn ized section and content) DATE CREATED AUTHOR 10/17/2023 [facility] ([place] DATE CREATED AUTHOR AUTHOR'S ORGANIZ ATION 04/12/2024 [facility] DATE CREATED AUTHOR AUTHOR'S ORGANIZ ATION 09/19/2025 [facility] Goals (unrecognized section and content) Goals may be documented in a n alternate section FOR RECORDS PERTAINING TO PATIENTS WHO ARE OR HAVE BEEN ENROLLED IN A CHEMICAL DEPENDENCY/SUBSTANCEABUSE PROGRAM, SOME INFORMATION MAY BE OMITTED. This clinical summary was aggregated from multiple sources. Caution should be exercised in using it in the provision of clinical care. This summary normalizes information from multiple sources, and as a consequence, information in this document may materially change the coding, format and clinical context of patient data. In addition, data may be omitted in some cases. CLINICAL DECISIONS SHOULD BE BASED ON THE PRIMARY CLINICAL RECORDS. [employer] provides no warranty or guarantee of the accuracy or completeness of information in this document.
== END | disposition home or self-care (01) ==
DX: E11.9 Type 2 diabetes mellitus without complications (principal)
CPT/HCPCS: 36415; 80053; 84443; 85025

== ENCOUNTER → 2025-10-23 | Outpatient (CLI) | payer MEDICARE, SELFPAY ==
--- NOTE | 2025-10-23 09:15 | MRI_ITS ---
PROCEDURE: UPPER EXT JOINT ONLY(ROUTINE) 10/23/2025 REASON FOR EXAM: RIGHT SHOULDER PAIN TECHNIQUE: Procedure Code: MRIUEJ Modality: MR Procedure: MRI of the right shoulder without contrast Multiplanar and multisequence images were obtained without IV contrast administration. COMPARISON: COMPARISON: None provided. FINDINGS: Moderate right acromioclavicular joint degenerative changes are seen, with marked associated joint narrowing. A moderate amount of fluid is seen within the subacromial/subdeltoid bursa. The right glenohumeral joint demonstrates moderately severe degenerative changes, with severe articular cartilage thinning, osseous reactive changes, and deformities in both sides of the articulation. Prominent inferior humeral head osteophytosis is seen medially. No significant glenohumeral joint effusion is seen Mild infraspinatus tendinosis is seen. The supraspinatus tendon demonstrates extensive partial-thickness tearing to the surface with questionable small distal full-thickness tear. No tendon retraction is noted. No acute osseous signal changes are seen. The long head of the biceps tendon appears intact. MRI/Upper Ext Joint Only(Routine) IMPRESSION: 1. Degenerative changes of the right acromioclavicular and especially glenohume ral joints is noted. 2. Supraspinatus tendon extensive partial tearing as described. 3. Mild infraspinatus tendinosis. Reading Location: [id number]
== END | disposition home or self-care (01) ==
LOC: MRI 09:07
PROVIDERS: PCP Nurse Practitioner Family
DX: M25.511 Pain in right shoulder (principal)
CPT/HCPCS: 73221